=== PATIENT | male | born 1950 | race Caucasian/White ===

== ENCOUNTER 2017-01-04 16:55 | Emergency (ER) | payer MEDICARE ==
[~2017-01-04] VITALS: Ht 175.3 cm; Wt 88.5 kg
[~2017-01-04 16:55] MED LIST: ASPI-586 PO; GLUC-113 PO; HYOS0.1217 PO; LEVO75TA57 PO; LOPE2CAP PO; OMG1KC PO; SERT25TA PO; SERT50TA9 PO
--- OUTSIDE RECORDS SUMMARY | 2017-01-04 17:01 | XMS REPORT | Continuity of Care Document ---
Author Author [facility] Organization [facility] Address Unknown Phone Unavailable Allergies Active Description Code Type Severity Reaction Onset Reported/Identified Relationship to Patient Clinical Status Yes Sulfa (Sulfonamide Antibiotics) [id number] Drug Allergy Moderate N/A 11/20/2011 Medications Problems Date Dx Coded Attending Type Code Diagnosis Diagnosed By 09/27/2012 Ot 724.2 09/27/2012 Ot V57.1 08/25/2014 Ot 786.2 08/25/2014 Ot 211.3 08/25/2014 Ot 562.10 08/25/2014 Ot V12.72 08/25/2014 Ot V76.51 08/25/2014 Ot V72.84 08/25/2014 MAUDE LEW MD Ot 786.2 08/25/2014 MAUDE LEW MD Ot 786.50 09/03/2014 SHANIKA GARDINER APRN Ot 723.4 09/03/2014 SHANIKA GARDINER APRN Ot V57.1 10/01/2014 SHANIKA GARDINER PERSONNEL CLERKS SUPERVISOR Ot 723.4 10/01/2014 SHANIKA GARDINER PERSONNEL CLERKS SUPERVISOR Ot V57.1 10/16/2014 SHANIKA GARDINER PERSONNEL CLERKS SUPERVISOR Ot 721.0 10/16/2014 SHANIKA GARDINER APRN Ot 721.3 10/16/2014 SHANIKA GARDINER APRN Ot 737.30 12/17/2014 Ot 786.2 12/17/2014 Ot 211.3 12/17/2014 Ot 562.10 12/17/2014 Ot V12.72 12/17/2014 Ot V76.51 12/17/2014 Ot V72.84 12/17/2014 MAUDE LEW MD Ot 786.2 12/17/2014 MAUDE LEW MD Ot 786.50 12/17/2014 SHANIKA GARDINER APRN Ot 721.0 12/17/2014 SHANIKA GARDINER APRN Ot 721.3 12/17/2014 SHANIKA GARDINER APRN Ot 737.30 12/24/2014 Ot 786.2 12/24/2014 Ot 211.3 12/24/2014 Ot 562.10 12/24/2014 Ot V12.72 12/24/2014 Ot V76.51 12/24/2014 Ot V72.84 12/24/2014 VIPIN PACKER, MAUDE Triana Ot 786.2 12/24/2014 MAUDE LEW MD Ot 786.50 12/24/2014 SHANIKA GARDINER PERSONNEL CLERKS SUPERVISOR Ot 721.0 12/24/2014 SHANIKA GARDINER PERSONNEL CLERKS SUPERVISOR Ot 721.3 12/24/2014 SHANIKA GARDINER PERSONNEL CLERKS SUPERVISOR Ot 737.30 01/01/2015 VINAYAK PACKER, ADRIANNA Triana Ot 787.91 01/07/2015 Ot 786.2 01/07/2015 Ot 211.3 01/07/2015 Ot 562.10 01/07/2015 Ot V12.72 01/07/2015 Ot V76.51 01/07/2015 Ot V72.84 01/07/2015 MAUDE LEW MD Ot 786.2 01/07/2015 MAUDE LEW MD Ot 786.50 01/07/2015 SHANIKA GARDINER PERSONNEL CLERKS SUPERVISOR Ot 721.0 01/07/2015 SHANIKA GARDINER PERSONNEL CLERKS SUPERVISOR Ot 721.3 01/07/2015 SHANIKA GARDINER PERSONNEL CLERKS SUPERVISOR Ot 737.30 01/07/2015 VIPIN PACKER, MAUDE Triana Ot 244.9 01/07/2015 VIPIN PACKER, MAUDE Triana Ot 787.91 01/07/2015 VIPIN PACKER, MAUDE Triana Ot V58.69 01/07/2015 ADRIANNA LICEA MD Ot V72.84 01/13/2015 MAUDE LEW MD Ot 244.9 01/13/2015 MAUDE LEW MD Ot 787.91 01/13/2015 MAUDE LEW MD Ot V58.69 02/25/2015 MAUDE LEW MD Ot 477.9 08/19/2015 Ot 211.3 08/19/2015 Ot 562.10 08/19/2015 Ot V12.72 08/19/2015 Ot V76.51 08/19/2015 Ot V72.84 08/19/2015 MAUDE LEW MD Ot 786.2 08/19/2015 MAUDE LEW MD Ot 786.50 08/19/2015 SHANIKA GARDINER PERSONNEL CLERKS SUPERVISOR Ot 721.0 08/19/2015 JON GARDINERToy Danielle PERSONNEL CLERKS SUPERVISOR Ot 721.3 08/19/2015 SHANIKA GARDINER PERSONNEL CLERKS SUPERVISOR Ot 737.30 08/19/2015 VIPIN PACKER, MAUDE Triana Ot 244.9 08/19/2015 VIPIN PACKER, MAUDE Triana Ot 787.91 08/19/2015 MAUDE LEW MD Ot V58.69 08/19/2015 VINAYAK PACKER, ADRIANNA Triana Ot V72.84 08/19/2015 MAUDE LEW MD Ot 477.9 08/19/2015 KARMEN SALGUERO MD Ot R42 08/19/2015 KARMEN SALGUERO MD Ot R55 09/08/2015 JASON RICHARDSON MD Ot E03.9 HYPOTHYROIDISM, UNSPECIFIED 09/08/2015 JASON RICHARDSON MD Ot E78.5 HYPERLIPIDEMIA, UNSPECIFIED 09/08/2015 JASON RICHARDSON MD Ot I10 ESSENTIAL (PRIMARY) HYPERTENSION 09/08/2015 JASON RICHARDSON MD Ot 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 09/08/2015 JASON RICHARDSON MD Ot R00.2 PALPITATIONS 09/08/2015 JASON RICHARDSON MD Ot R42 DIZZINESS AND GIDDINESS 09/08/2015 JASON RICHARDSON MD Ot R94.39 ABNORMAL RESULT OF OTHER CARDIOVASCULAR 09/08/2015 JASON RICHARDSON MD Ot Z79.899 OTHER SNF (CURRENT) DRUG THERAPY 09/08/2015 JASON RICHARDSON MD Ot Z87.891 PERSONAL HISTORY OF NICOTINE DEPENDENCE 09/09/2015 JASON RICHARDSON MD Ot R42 09/09/2015 JASON RICHARDSON MD Ot R94.31 09/09/2015 JASON RICHARDSON MD Ot Z82.49 09/16/2015 JASON RICHARDSON MD Ot R42 09/16/2015 JASON RICHARDSON MD Ot R94.31 09/16/2015 JASON RICHARDSON MD Ot Z82.49 09/20/2015 JASON RICHARDSON MD Ot E03.9 09/20/2015 JASON RICHARDSON MD Ot E78.5 09/20/2015 JASON RICHARDSON MD Ot I10 09/20/2015 JASON RICHARDSON MD Ot I25.10 09/20/2015 JASON RICHARDSON MD Ot R00.2 09/20/2015 JASON RICHARDSON MD Ot R42 09/20/2015 JASON RICHARDSON MD Ot R94.39 09/20/2015 JASON RICHARDSON MD Ot Z79.899 09/20/2015 JASON RICHARDSON MD Ot Z87.891 Procedures Results Encounters ACCT No. Visit Date/Time Discharge Status Pt. Type Provider Facility Loc./Unit Complaint [id number] 09/08/2015 13:03:00 2015 20:00:00 DIS Outpatient JASON RICHARDSON MD [facility] [id number] 08/19/2015 09:22:00 2015 15:40:00 DIS Emergency KARMEN SALGUERO MD [facility] ER [id number] 02/08/2015 08:12:00 2014 23:59:59 CLS Outpatient MAUDE LEW MD [facility] RAD [id number] 01/01/2015 07:12:00 2014 09:56:00 [id number] 12/31/2014 06:33:00 2014 23:59:59 CLS Outpatient ADRIANNA LICEA MD [facility] PREOP [id number] 12/24/2014 10:37:00 2014 23:59:59 CLS Outpatient MAUDE LEW MD [facility] LAB [id number] 10/06/2014 08:45:00 2014 23:59:59 CLS Outpatient SHANIKA GARDINER APRN [facility] RAD [id number] 08/26/2014 14:02:00 2014 23:59:59 CLS Outpatient SHANIKA GARDINER APRN [facility] REHAB [id number] 05/19/2013 08:29:00 2012 23:59:59 CLS Outpatient MAUDE LEW MD [facility] RAD [id number] 09/06/2015 08:25:00 ACT Outpatient DEBRA PACKER, JASON Carroll [facility] CARD [id number] 09/06/2012 07:57:00 Document Registration [id number] 11/21/2011 07:56:00 Document Registration [id number] 11/20/2011 07:47:00 Document Registration [id number] 08/02/2009 16:22:00 Document Registration
[2017-01-04] MEDS ORDERED: NS IV 1000 ML 1,000 ML IV SCH (17:15)
[2017-01-04 17:16] LABS: BASOPHILS % (AUTO) 0 % (0-10); EOSINOPHILS # (AUTO) 0.1 10^3/uL (0.0-0.3); EOSINOPHILS % (AUTO) 1 % (0-10); LYMPHOCYTES % (AUTO) 12 % (12-44); MEAN CORPUSCULAR HEMOGLOBIN 32 PG (25-34); MEAN CORPUSCULAR HGB CONC 34 G/DL (32-36); MEAN CORPUSCULAR VOLUME 94 FL (80-99); MEAN PLATELET VOLUME 9.4 FL (7.4-10.4); MONOCYTES # (AUTO) 0.7 X 10^3 (0.0-1.0); MONOCYTES % (AUTO) 8 % (0-12); NEUTROPHILS # (AUTO) 6.6 X 10^3 (1.8-7.8); NEUTROPHILS % (AUTO) 79 % (42-75); PLATELET COUNT 224 10^3/uL (130-400); RED BLOOD COUNT 4.52 10^6/uL (4.35-5.85); WHITE BLOOD COUNT 8.4 10^3/uL (4.3-11.0)
--- NOTE | 2017-01-04 17:28 | ED General ---
General Chief Complaint: Dizziness/Syncope Stated Complaint: HOT FLASHES/LIGHT HEADEDNESS Source of Information: Patient Exam Limitations: No Limitations History of Present Illness Time Seen by Provider: 17:24 Initial Comments To ER from Dr. Lew's office with reports of hot flashes and lightheadedness. He also reports some tingling in both of his legs. This began today at about noon. Prior to that he been working outside in the heat but does not believe that he exerted himself. However, he states that he was sweating heavily. At this time he feels much better but still not back to normal. He denies chest pain or shortness of breath. Denies nausea currently though he did have nausea earlier without vomiting. No diarrhea. Timing/Duration: 2-3 Days Severity: Moderate Associated Systoms: Nausea/Vomiting, Weakness Allergies and Home Medications Allergies Coded Allergies: Sulfa (Sulfonamide Antibiotics) (Unverified Allergy, Intermediate, 11/20/11 ) Home Medications Aspirin 81 Mg Tablet.dr, 81 MG PO DAILY, (Reported) Levothyroxine Sodium 75 Mcg Tablet, 75 MCG PO DAILY, (Reported) [place] 3 Polyunsat Fatty Acids 1,000 Mg Cap, 1,000 MG PO TID, (Reported) Sertraline HCl 50 Mg Tablet, 50 MG PO DAILY, (Reported) Constitutional: see HPI EENTM: see HPI Respiratory: no symptoms reported Cardiovascular: no symptoms reported Genitourinary: no symptoms reported Musculoskeletal: no symptoms reported Skin: no symptoms reported Psychiatric/Neurological: No Symptoms Reported Hematologic/Lymphatic: No Symptoms Reported Past Atbjplp-Rqoyec-Iymvrg Hx Patient Social History Alcohol Use: Regular Use Recreational Drug Use: No Smoking Status: Never a Smoker Recent Foreign Travel: No Contact w/Someone Who Travel: No Immunizations Up To Date Date of Pneumonia Vaccine: Dec 31, 2009 Surgeries HX Surgeries: Yes Respiratory Hx Respiratory Disorders: No Cardiovascular Hx Cardiac Disorders: No Neurological Hx Neurological Disorders: No Genitourinary Hx Genitourinary Disorders: No Gastrointestinal Hx Gastrointestinal Disorders: No Musculoskeletal Hx Musculoskeletal Disorders: Yes (ARTHRITIS) Endocrine Hx Endocrine Disorders: Yes Cancer Cancer: Prostate Physical Exam Vital Signs Vital Sign - Last 12Hours 01/04/17 16:58 Temp 98.9 Pulse 78 Resp 18 B/P (MAP) 151/87 Pulse Ox 98 O2 Delivery Room Air Capillary Refill : General Appearance: No Apparent Distress, WD/WN Eyes: Bilateral Eye EOMI, Bilateral Eye Normal Inspection, Bilateral Eye PERRL HEENT: PERRL/EOMI, TMs Normal Neck: Full Range of Motion, Normal Inspection Respiratory: Normal Breath Sounds, No Accessory Muscle Use, No Respiratory Distress Cardiovascular: Regular Rate, Rhythm, Normal Peripheral Pulses Gastrointestinal: Normal Bowel Sounds, Non Tender, Soft Extremity: Normal Capillary Refill, Normal Inspection Neurologic/Psychiatric: Alert, Oriented x3, No Motor/Sensory Deficits, Normal Mood/Affect Skin: Normal Color, Warm/Dry Comments Initial heart rate 63, blood pressure 162/87 Progress/Results/Core Measures Results/Orders Lab Results Laboratory Tests Test 01/04/17 17:04 Range/Units White Blood Count 8.4 4.3-11.0 10^3/uL Red Blood Count 4.52 4.35-5.85 10^6/uL Hemoglobin 14.5 13.3-17.7 G/DL Hematocrit 43 40-54 % Mean Corpuscular Volume 94 80-99 FL Mean Corpuscular Hemoglobin 32 25-34 PG Mean Corpuscular Hemoglobin Concent 34 32-36 G/DL Red Cell Distribution Width 13.0 10.0-14.5 % Platelet Count 224 130-400 10^3/uL Mean Platelet Volume 9.4 7.4-10.4 FL Neutrophils (%) (Auto) 79 H 42-75 % Lymphocytes (%) (Auto) 12 12-44 % Monocytes (%) (Auto) 8 0-12 % Eosinophils (%) (Auto) 1 0-10 % Basophils (%) (Auto) 0 0-10 % Neutrophils # (Auto) 6.6 1.8-7.8 X 10^3 Lymphocytes # (Auto) 1.0 1.0-4.0 X 10^3 Monocytes # (Auto) 0.7 0.0-1.0 X 10^3 Eosinophils # (Auto) 0.1 0.0-0.3 10^3/uL Basophils # (Auto) 0.0 0.0-0.1 10^3/uL Sodium Level 136 135-145 MMOL/L Potassium Level 4.2 3.6-5.0 MMOL/L Chloride Level 101 98-107 MMOL/L Carbon Dioxide Level 23 21-32 MMOL/L Anion Gap 12 5-14 MMOL/L Blood Urea Nitrogen 13 7-18 MG/DL Creatinine 0.89 0.60-1.30 MG/DL Estimat Glomerular Filtration Rate > 60 BUN/Creatinine Ratio 15 Glucose Level 102 70-105 MG/DL Calcium Level 9.3 8.5-10.1 MG/DL Total Bilirubin 0.9 0.1-1.0 MG/DL Aspartate Amino Transf (AST/SGOT) 25 5-34 U/L Alanine Aminotransferase (ALT/SGPT) 24 0-55 U/L Alkaline Phosphatase 45 40-136 U/L Myoglobin 51.5 10.0-92.0 NG/ML Troponin I < 0.30 <0.30 NG/ML Total Protein 7.4 6.4-8.2 GM/DL Albumin 4.6 H 3.2-4.5 GM/DL My Orders Orders - AJAY CARBONE APRN Cbc With Automated Diff (01/04/17 17:05) Ekg Tracing (01/04/17 17:05) Comprehensive Metabolic Panel (01/04/17 17:05) Troponin I (01/04/17 17:05) Myoglobin Serum (01/04/17 17:05) Ns Iv 1000 Ml (Sodium Chloride 0.9%) (01/04/17 17:15) Vital Signs/I&O Vital Sign - Last 12Hours 01/04/17 16:58 Temp 98.9 Pulse 78 Resp 18 B/P (MAP) 151/87 Pulse Ox 98 O2 Delivery Room Air Progress Note : Progress Note 1831-symptoms have completely resolved at this time with no tingling in the legs and no lightheadedness. Still no nausea. Vital stable we will discharge to home Departure Impression Impression: Primary Impression: heat related illness Disposition: 01 HOME, SELF-CARE Condition: Stable Departure-Patient Inst. Decision time for Depature: 17:41 Referrals: MAUDE LEW MD (PCP/Family) Primary Care Physician Patient Instructions: Heat Exhaustion and Heat Stroke (DC) Add. Discharge Instructions: All discharge instructions reviewed with patient and/or family. Voiced understanding. AJAY CARBONE APRN Jan 04, 2017 17:28
[2017-01-04 17:29] LABS: ALANINE AMINOTRANSFERASE 24 U/L (0-55); ALBUMIN 4.6 GM/DL (3.2-4.5); ANION GAP 12 MMOL/L (5-14); ASPARTATE AMINO TRANSFERASE 25 U/L (5-34); BILIRUBIN,TOTAL 0.9 MG/DL (0.1-1.0); BLOOD UREA NITROGEN 13 MG/DL (7-18); BUN/CREATININE RATIO 15; CALCIUM 9.3 MG/DL (8.5-10.1); CARBON DIOXIDE 23 MMOL/L (21-32); CHLORIDE 101 MMOL/L (98-107); CREATININE SERUM 0.89 MG/DL (0.60-1.30); GFR ESTIMATED > 60; GLUCOSE 102 MG/DL (70-105); POTASSIUM 4.2 MMOL/L (3.6-5.0); SODIUM 136 MMOL/L (135-145); TOTAL PROTEIN 7.4 GM/DL (6.4-8.2)
[2017-01-04 17:35] LABS: MYOGLOBIN SERUM 51.5 NG/ML (10.0-92.0); TROPONIN I < 0.30 NG/ML (<0.30)
[2017-01-04 18:20] VITALS: BP 151/87
== END 2017-01-04 18:20 | disposition home or self-care (01) ==
LOC: EDUNIT# 16:55 → ER 16:57
DX: T67.8XXA Other effects of heat and light, initial encounter (principal); R42 Dizziness and giddiness
CPT/HCPCS: 36415; 80053; 83874; 84484; 85025; 96360

== ENCOUNTER → 2017-01-17 | Outpatient (CLI) | payer MEDICARE ==
--- NOTE | 2017-01-17 15:33 | Diagnostic Imaging Report ---
PA and lateral views of the chest. INDICATION: Shortness of breath. FINDINGS: The lungs are hyperinflated but clear. The heart size is normal. There is no effusion or pneumothorax. The mediastinum and long appear unremarkable. IMPRESSION: Hyperinflated clear lungs. Dictated by: Dictated on workstation # [id number]
--- NOTE | 2017-01-17 15:41 | Diagnostic Imaging Report ---
Three views of the lumbar spine. INDICATION: Back pain. FINDINGS: There is satisfactory alignment of the posterior spinal line. There is preserved vertebral body heights. The disc heights demonstrate significant disc height loss at L4/5 and L5/S1 levels. Minimal anterior osteophytes without significant posterior osteophytes is seen in the mid to lower lumbar spine. Degenerative sclerosis of the lower facet joints and the SI joints is seen. IMPRESSION: Lower lumbar spine disc and facet degenerative changes. Dictated by: Dictated on workstation # [id number]
--- NOTE | 2017-01-17 15:41 | Diagnostic Imaging Report ---
Three views of the thoracic spine. INDICATION: Back pain. FINDINGS: The alignment of the thoracic spine is satisfactory. The vertebral body heights are preserved. There is multilevel disc height loss seen with the endplate sclerosis and prominent anterior osteophytes most prominent around the mid to lower thoracic spine. The lower thoracic spine demonstrate a slight left convex scoliosis. IMPRESSION: Mid to lower thoracic spine degenerative changes and slight left convexity scoliosis. Dictated by: Dictated on workstation # [id number]
--- NOTE | 2017-01-17 15:41 | Diagnostic Imaging Report ---
Two views of the right ribs. INDICATION: Right rib pain. FINDINGS: There is no rib fracture seen. The right lung is clear. IMPRESSION: No rib fracture seen. Dictated by: Dictated on workstation # [id number]
== END ==
LOC: RAD 15:02
PROVIDERS: ATTEND Nurse Practitioner
DX: R07.81 Pleurodynia (principal); M47.814 Spondylosis without myelopathy or radiculopathy, thoracic region; M51.36 Other intervertebral disc degeneration, lumbar region; M47.816 Spondylosis without myelopathy or radiculopathy, lumbar region
CPT/HCPCS: 71020; 71100; 72072; 72100

== ENCOUNTER 2017-04-03 13:42 | Outpatient (RCR) | payer MEDICARE | END 2017-04-07 | disposition home or self-care (01) | PROVIDERS: ATTEND Physician Assistant | DX: M54.5 Low back pain (principal); M54.6 Pain in thoracic spine ==

== ENCOUNTER 2017-06-18 09:15 | Outpatient (RCR) | payer MEDICARE | END 2017-07-08 | disposition home or self-care (01) | PROVIDERS: ATTEND Physician Assistant | DX: M54.5 Low back pain (principal); M54.6 Pain in thoracic spine ==

== ENCOUNTER 2017-08-20 13:00 | Outpatient (RCR) | payer MEDICARE | END 2017-10-02 09:08 | disposition home or self-care (01) | PROVIDERS: ATTEND Internal Medicine | DX: M54.5 Low back pain (principal) ==

== ENCOUNTER → 2017-12-20 | Outpatient (CLI) | payer MEDICARE ==
--- NOTE | 2017-12-20 16:21 | Diagnostic Imaging Report ---
INDICATION: Shortness of breath and cough. TIME OF EXAM: 02:29 p.m. Correlation is made with prior study from 01/17/2017. FINDINGS: The heart size is stable. Lungs are hyperinflated consistent with COPD. No infiltrates are detected. No effusion or pneumothorax is seen. IMPRESSION: COPD. No acute feature is detected. Dictated by: Dictated on workstation # [id number]
== END ==
LOC: RAD 13:48
PROVIDERS: ATTEND Nurse Practitioner
DX: J44.9 Chronic obstructive pulmonary disease, unspecified (principal); R50.9 Fever, unspecified
CPT/HCPCS: 71046

== ENCOUNTER 2018-05-27 09:15 | Outpatient (RCR) | payer MEDICARE | END 2018-07-04 13:28 | disposition home or self-care (01) | PROVIDERS: ATTEND Physician Assistant | DX: M54.5 Low back pain (principal) ==

== ENCOUNTER → 2018-06-06 | Outpatient (CLI) | payer MEDICARE ==
--- NOTE | 2018-06-06 08:56 | Diagnostic Imaging Report ---
PROCEDURE: US abdomen complete. TECHNIQUE: Multiple real-time grayscale images were obtained over the abdomen in various projections. INDICATION: Right upper quadrant pain. FINDINGS: The liver is normal in size. No discrete liver mass is identified. There is some increased echogenicity to the liver suggestive of hepatic steatosis. The portal vein is patent and shows normal direction of flow. The gallbladder is without stones or sludge. No wall thickening or biliary duct dilatation is identified. The pancreas and spleen are unremarkable. The aorta is nonaneurysmal. The IVC appears patent. Right and left kidneys are unremarkable apart from a small approximately 1 cm cyst involving the mid right kidney. There is no ascites. IMPRESSION: Essentially unremarkable abdominal ultrasound apart from hepatic steatosis and small right renal cyst. Dictated by: Dictated on workstation # [id number]
== END ==
LOC: RAD 07:58
PROVIDERS: ATTEND Nurse Practitioner
DX: K76.0 Fatty (change of) liver, not elsewhere classified (principal); N28.1 Cyst of kidney, acquired
CPT/HCPCS: 76700

== ENCOUNTER → 2018-06-06 | Outpatient (CLI) | payer MEDICARE | LOC: CARD 10:45 | PROVIDERS: ATTEND Physician Assistant | DX: I10 Essential (primary) hypertension (principal); I25.10 Atherosclerotic heart disease of native coronary artery without angina pectoris; E78.2 Mixed hyperlipidemia; Z82.49 Family history of ischemic heart disease and other diseases of the circulatory system; I34.0 Nonrheumatic mitral (valve) insufficiency | CPT/HCPCS: 93306 ==

== ENCOUNTER → 2018-07-05 | Outpatient (CLI) | payer MEDICARE ==
[~2018-07-05] MED LIST changes: +CATHETER FLUSH 10 ML SYR IV PRN; +LEVO50TA6 PO; +LISI-552 PO; +OMEG1CAP24 PO; +RANI150T46 PO; +SUCR1TAB36 PO; +[UNRECOGNIZED DRUG - CODE] PO
--- NOTE | 2018-07-05 12:12 | Diagnostic Imaging Report ---
INDICATION: Right upper quadrant pain. Patient was administered 5.5 mCi technetium 99m Choletec intravenously and imaging over the abdomen was performed. Next, patient ingested 8 ounces of Ensure at 45 minutes and a gallbladder ejection fraction was calculated. There is homogeneous uptake of activity by the liver. Prompt excretion of activity into the gallbladder and common duct is seen with normal passage of activity into the small bowel. Gallbladder ejection fraction is normal at 57%. IMPRESSION: Normal HIDA scan and gallbladder ejection fraction. Dictated by: Dictated on workstation # [id number]
== END ==
LOC: CARD 09:14
PROVIDERS: ATTEND Surgery
DX: R10.11 Right upper quadrant pain (principal)
CPT/HCPCS: 78227

== ENCOUNTER 2018-07-08 05:45 | Outpatient (CLI) | payer MEDICARE ==
[~2018-07-08] VITALS: Ht 175.3 cm; Wt 61.2 kg
[~2018-07-08 05:45] MED LIST changes: -CATHETER FLUSH 10 ML SYR IV PRN; -LEVO50TA6 PO; -LISI-552 PO; -OMEG1CAP24 PO; -RANI150T46 PO; -SUCR1TAB36 PO; -[UNRECOGNIZED DRUG - CODE] PO
[2018-07-08] MEDS ORDERED: [UNRECOGNIZED DRUG - CODE] PO (10:06)
[2018-07-08] MEDS ORDERED: LEVO50TA6 PO (10:06)
[2018-07-08] MEDS ORDERED: OMEG1CAP24 PO (10:06)
[2018-07-08] MEDS ORDERED: LISI-552 PO (10:06)
[2018-07-08] MEDS ORDERED: RANI150T46 PO (10:06)
[2018-07-08] MEDS ORDERED: SUCR1TAB36 PO (10:06)
== END 2018-07-08 10:27 | disposition home or self-care (01) ==
LOC: PREOP 05:45
PROVIDERS: ATTEND Surgery
DX: Z01.818 Encounter for other preprocedural examination (principal)

== ENCOUNTER 2018-07-11 09:38 | Day surgery (SDC) | payer MEDICARE ==
[~2018-07-11] VITALS: Ht 175.3 cm; Wt 59.9 kg
[~2018-07-11 09:38] MED LIST changes: +LEVO50TA6 PO; +LISI-552 PO; +OMEG1CAP24 PO; +RANI150T46 PO; +SUCR1TAB36 PO; +[UNRECOGNIZED DRUG - CODE] PO
--- NOTE | 2018-07-11 10:04 | Progress Note-Pre Operative ---
Pre-Operative Progress Note H&P Reviewed The H&P was reviewed, patient examined and no changes noted. Date Seen by Provider: Jul 11, 2018 Time Seen by Provider: 10:00 Date H&P Reviewed: Jul 11, 2018 Time H&P Reviewed: 10:00 Pre-Operative Diagnosis: symptomatic biliary dyskinesia, GERD, hx polyp DUNG ACHARYA MD Jul 11, 2018 10:04
[2018-07-11 10:05] VITALS: BP 159/83
[2018-07-11] MEDS: LACTATED RINGERS 1,000 ML IV PRN ×2 (10:05→12:40)
[2018-07-11 10:13] LABS: BASOPHILS % (AUTO) 1 % (0-10); EOSINOPHILS # (AUTO) 0.1 10^3/uL (0.0-0.3); EOSINOPHILS % (AUTO) 2 % (0-10); HEMATOCRIT 47 % (40-54); HEMOGLOBIN 15.5 G/DL (13.3-17.7); LYMPHOCYTES # (AUTO) 1.2 X 10^3 (1.0-4.0); LYMPHOCYTES % (AUTO) 25 % (12-44); MEAN CORPUSCULAR HEMOGLOBIN 31 PG (25-34); MEAN CORPUSCULAR HGB CONC 33 G/DL (32-36); MEAN CORPUSCULAR VOLUME 94 FL (80-99); MONOCYTES # (AUTO) 0.6 X 10^3 (0.0-1.0); MONOCYTES % (AUTO) 12 % (0-12); NEUTROPHILS # (AUTO) 2.9 X 10^3 (1.8-7.8); NEUTROPHILS % (AUTO) 60 % (42-75); PLATELET COUNT 236 10^3/uL (130-400); RED BLOOD COUNT 4.96 10^6/uL (4.35-5.85); RED CELL DISTRIBUTION WIDTH 12.6 % (10.0-14.5); WHITE BLOOD COUNT 4.8 10^3/uL (4.3-11.0)
[2018-07-11] MEDS ORDERED: morphine INJ 10 MG/ML 1ML (SYR OR VIAL) IVP PRN (10:15)
[2018-07-11] MEDS ORDERED: ACETAMINOPHEN 325 MG TABLET PO PRN (10:15)
[2018-07-11] MEDS ORDERED: oxyCODONE/APAP 5/325MG (PERCOCET 5) TABLET PO PRN (10:15)
[2018-07-11] MEDS ORDERED: ceFAZolin 2 GM IV Premixed 50 ML IV ONE (10:15)
[2018-07-11] MEDS ORDERED: ONDANSETRON 4 MG/2 ML (SDV) Z0FRAN IVP PRN ×2 (10:15→14:15)
[2018-07-11] MEDS ORDERED: fentaNYL INJECTION 100 MCG/2 ML AMP ONE (11:54)
[2018-07-11] MEDS ORDERED: MIDAZOLAM 2 MG/2 ML (VERSED) VIAL ONE (11:54)
[2018-07-11] MEDS ORDERED: proPOfol 200 MG/20 ML (DIPRIVAN) VIAL IV ONE (11:54)
[2018-07-11] MEDS ORDERED: LIDOCAINE PF 2% 5 ML (XYLOCAINE) VIAL ONE (11:54)
[2018-07-11] MEDS ORDERED: BUP/EPI 0.5% 1:200,000 (SENSORCAINE) 30 ML VIAL ONE (12:01)
[2018-07-11] MEDS ORDERED: PANT40TA2 PO (13:45)
[2018-07-11] MEDS ORDERED: HYDR-3816 PO (13:45)
--- NOTE | 2018-07-11 13:47 | Discharge Inst-Surgical ---
D/C Lap Instructions-KIDO New, Converted, or Re-Newed RX: RX on Chart Follow up appointment 2 weeks Activity as tolerated No driving for 24 hours No [address] while on pain medications Incentive Spirometry use every 2 hours while awake Regular Diet High Fiber Diet 25g or more per day Avoid Alcohol, Caffeine, Spicy [place] and Acid foods. Drink 64 fluid oz or more of fluids per day. Symptoms to Report: Fever over 101 degree F, Nausea/Vomiting Infection Signs and Symptoms to report: Increased redness, Foul odor of wound, Increased drainage Bathing instructions: May shower Operative Area Clean/Dry; Keep incision clean/dry If any problems/questions: Contact your physician or go to Emergency Room CORA GARCIA APRN Jul 11, 2018 13:47
[2018-07-11] MEDS ORDERED: morphine INJ 10 MG/ML 1ML (SYR OR VIAL) IVP ONE (14:15)
[2018-07-11] MEDS ORDERED: HYDROmorphone 2 MG/ML VIAL (DILAUDID) IV ONE (14:15)
--- NOTE | 2018-07-11 14:28 | Progress Note-Post Operative ---
Post-Operative Progess Note Surgeon (s)/Landing Worker (s) Surgeon DUNG ACHARYA MD Landing Worker: jovanni mccloud SENIOR NET WEB DEVELOPER Pre-Operative Diagnosis symptomatic biliary dyskinesia, GERD, hx polyp Post-Operative Diagnosis symptomatic biliary dyskinesia, reflux esophagitis(stage 2), small HH(1.5cm), moderate gastritis, chronic stage 1 ext and int hemorrhoids. Procedure & Operative Findings Date of Procedure 07/11/18 Procedure Performed/Findings laparoscopic cholecystectomy. EGD with bx. Colonoscopy. Anesthesia Type GET Estimated Blood Loss Estimated blood loss (mL): minimal Specimens/Packing Specimens Removed gallbladder, GE jxn, antrum DUNG ACHARYA MD Jul 11, 2018 14:28
--- NOTE | 2018-07-11 14:44 | Anesthesia-General Post-Op ---
General Patient Condition Mental Status/LOC: Same as Preop Cardiovascular: Satisfactory Nausea/Vomiting: Absent Respiratory: Satisfactory Pain: Controlled Complications: Absent Post Op Complications Complications None Follow Up Care/Instructions Patient Instructions None needed. Anesthesia/Patient Condition Patient Condition Patient is doing well, no complaints, stable vital signs, no apparent adverse anesthesia problems. ROSA DUVALL DO Jul 11, 2018 14:44
[2018-07-11 14:55] VITALS: BP 130/73
[2018-07-11 15:25] VITALS: BP 143/81
[2018-07-11 15:55] VITALS: BP 141/84
[2018-07-11 16:25] VITALS: BP 141/84
--- NOTE | 2018-07-12 00:39 | OPERATIVE REPORT ---
DATE OF SERVICE: 07/11/2018 ATTENDING PRIMARY CARE PHYSICIAN: Dr. Alarcon. PREOPERATIVE DIAGNOSES: Symptomatic biliary dyskinesia, gastroesophageal reflux disease, history of colon polyp. POSTOPERATIVE DIAGNOSES: Symptomatic biliary dyskinesia, reflux esophagitis stage II, small hiatal hernia approximately 1.5 cm in size, moderate severity gastritis. Chronic stage I external and internal hemorrhoids. Remainder of the rectum and colon were normal. PROCEDURE: Laparoscopic cholecystectomy, EGD with biopsy, colonoscopy. SURGEON: Dung Fisher MD FOOD SAFETY AUDITOR: Nav Diaz APRN. ANESTHESIA: General endotracheal. ESTIMATED BLOOD LOSS: Minimal. FINDINGS: A distended gallbladder with no gallstones. Reflux esophagitis stage II. A small hiatal hernia approximately 1.5 cm in size. Moderate severity gastritis. No formal ulcerations, polyps or any neoplasms. Pylorus and duodenum appeared normal with no distal obstructions. Colonoscopy, chronic stage I external and internal hemorrhoids, not actively edematous nor inflamed and no bleeding. Prostate gland was palpable and appeared normal. The remainder of the rectum and colon were normal. There were no polyps or any neoplasms identified. DISPOSITION: The patient tolerated the procedure well. INDICATIONS: The patient is a 68-year-old male who has had a multitude of gastrointestinal issues. He first reports that he has had issues with reflux with epigastric burning sensation as well as crampy pain for several years; however, this has been mild. He has been taking Zantac, which initially helped; however, has become less effective over time. He also has had some abdominal bloating as well as episodes of nausea after eating meals and an ultrasound was performed, which did not show any gallstones; however, HIDA scan was then performed and after the administration of a Kinevac analog, he did have an ejection fraction within normal limits; however, he did have reproduction of symptoms with abdominal distention, bloating, crampy abdominal pain. He has also had a history of colonic polyp on his last colonoscopy, which was done approximately 5 years ago. He does not report any red blood per rectum nor any dark tarry stools. He also does not report any family history of colon cancer. DESCRIPTION OF PROCEDURE: The patient was brought to the operating room, laid supine on the table. After adequate IV pain and sedative medications and general endotracheal intubation, the abdomen was prepped and draped in standard surgical fashion. A 0.5% Marcaine with epinephrine was used to anesthetize the overlying skin in the left upper abdominal quadrant and a transverse skin incision was made using a 15 blade. An 0 silk suture was applied to the medial aspect of the incision for retraction and a Veress needle inserted with a low opening pressure of 0 mmHg. The abdomen was then insufflated to 15 mmHg pressure. The Veress needle was removed and a 5 mm Xcel trocar was placed followed by a 5 mm 45-degree angle laparoscope visualizing the peritoneal cavity. A 4-quadrant abdominal exploration was performed. There was gallbladder dilatation. There was no gallbladder wall inflammation. What was visualized was the liver, stomach, small bowel appeared normal. Under direct visualization, we then proceed to place a supraumbilical 10 mm port after the skin and peritoneal lining were anesthetized using 0.5% Marcaine with epinephrine and a transverse skin incision was made using a 15 blade. In a similar manner, a right upper abdominal quadrant 5 mm port was placed. The patient was then placed in reverse Trendelenburg position as well as plane right side up, left side down. The fundus of the gallbladder was then retracted anteriorly and superiorly. The hepatoduodenal ligament was then opened using blunt dissection as well as electrocautery on the hook instrument. The entire critical view of safety was identified including the triangle of Calot as well as the cystic duct and artery as the only two structures going into the gallbladder as well as the cystic plate behind the proximal gallbladder. A timeout was then taken. The cystic duct and artery were then clipped proximally, distally and cut with EndoShears. The gallbladder was then dissected off of the liver bed using cautery on hook instrument with visualization of good hemostasis as well as no leaking ducts of Luschka. The gallbladder was then removed through the 10 mm port site using an EndoCatch bag. The 10 mm port site fascia and peritoneum were then closed under direct visualization using a Richmond-Jessika device and 0 Vicryl suture. The abdomen was desufflated and remaining ports were removed. All skin incisions were closed using 4-0 Monocryl running subcuticular sutures. Wounds were then cleaned and covered with Dermabond. The patient tolerated this portion of the procedure well. We will start IV and oral pain medication as well as a clear liquid diet. Once he is tolerating clears, has good pain control with oral pain medications, ambulating well, we will discharge him home. He will also be instructed to do no heavy lifting or exertion for the next two weeks. Under the same anesthesia, we then proceeded with the EGD portion of procedure. The mouthpiece was applied. The endoscope was placed in the mouth, visualizing the pharynx and hypopharyngeal region. Vocal cords, epiglottis and vallecula identified and appeared to be normal. Endoscope was then gently intubated. The esophageal opening and esophagus insufflated. The endoscope was then advanced to the first, second and third portions of the esophagus at the level of the GE junction. A reflux esophagitis stage II identified. There were no ulcers or strictures identified in this region. The endoscope was then easily advanced in the stomach and endoscope retroflexed, visualizing a small hiatal hernia approximately 1.5 cm in size. There was a moderate severity gastritis more focused towards the stomach antrum with superficial erosions; however, no formal ulcerations. A biopsy was taken of the antrum with forceps with visualization of good hemostasis. The endoscope was then advanced through the pylorus and the first and second portions of duodenum, which appeared normal and no distal obstructions. The endoscope was then slowly withdrawn while taking a second look and suctioning of residual air with no additional findings. The patient tolerated this portion of the procedure well. We will recommend the necessary lifestyle and diet accommodation including smoking cessation as well as avoidance of caffeinated beverages, alcoholic beverages as well as spicy, greasy and acidic foods as well as starting Protonix 40 mg daily. Under the same anesthesia, we then proceed with colonoscopy portion of the procedure. The patient was placed in frog leg position and a digital rectal examination was performed, which revealed mild chronic stage I external and internal hemorrhoids, not actively edematous nor inflamed and no bleeding. Normal sphincter tone was felt and there were no palpable masses. Prostate gland was palpable and appeared to be normal. The endoscope was then intubated to the anus and rectum gently insufflated. The endoscope was then advanced through the valves of Leonard of the rectum with no polyps or any neoplasms identified. We then proceeded to the sigmoid colon where no diverticulosis identified. The endoscope was then advanced through the remainder of the descending, transverse and ascending colon to the cecum. These segments are normal. There were no polyps or any neoplasms identified throughout the colon or rectum. The endoscope was then slowly withdrawn while taking a second look and suctioning of residual air with no additional findings. The patient tolerated this portion of the procedure well. No polyps were identified and we will recommend continued medical management with high fiber diet with at least 30 grams of fiber per day as well as copious amounts of water to promote soft stools on a daily basis. He does not need another colonoscopy for another 10 years; however, sooner if he becomes symptomatic. Job ID: [id number] DocumentID: [id number] Dictated Date: 07/11/2018 14:32:26 Clinical Research Physician Date: 07/12/2018 00:38:59 Dictated By: DUNG FISHER MD MTDD
== END 2018-07-11 16:25 | disposition home or self-care (01) ==
LOC: SDC 09:38
PROVIDERS: ATTEND Surgery
DX: K81.1 Chronic cholecystitis (principal); K22.70 Barrett's esophagus without dysplasia; K21.0 Gastro-esophageal reflux disease with esophagitis; K44.9 Diaphragmatic hernia without obstruction or gangrene; K29.70 Gastritis, unspecified, without bleeding; K64.0 First degree hemorrhoids; Z86.010 Personal history of colon polyps; I10 Essential (primary) hypertension; J44.9 Chronic obstructive pulmonary disease, unspecified; F17.220 Nicotine dependence, chewing tobacco, uncomplicated; C61 Malignant neoplasm of prostate; E03.9 Hypothyroidism, unspecified; K21.9 Gastro-esophageal reflux disease without esophagitis; F41.9 Anxiety disorder, unspecified; F32.9 Major depressive disorder, single episode, unspecified; E78.00 Pure hypercholesterolemia, unspecified; Z79.82 Long term (current) use of aspirin; Z79.899 Other long term (current) drug therapy
CPT/HCPCS: 36415; 85025; 87081; 88304; 88305; 94664

== ENCOUNTER 2018-10-10 09:23 | Outpatient (RCR) | payer MEDICARE ==
[~2018-10-10 09:23] MED LIST changes: +HYDR-3816 PO; +PANT40TA2 PO
== END 2018-12-04 15:50 | disposition home or self-care (01) ==
PROVIDERS: ATTEND Internal Medicine
DX: M54.12 Radiculopathy, cervical region (principal)

== ENCOUNTER → 2018-11-20 | Outpatient (CLI) | payer MEDICARE ==
--- NOTE | 2018-11-20 13:39 | Diagnostic Imaging Report ---
CLINICAL INDICATION: Patient with history of right renal cyst seen on previous ultrasound dated 06/06/2018. EXAM: Ultrasound of both kidneys. COMPARISON: Ultrasound of the abdomen dated 06/06/2018. FINDINGS: The previously seen 10 mm cyst involving the lateral aspect of the right kidney is not visualized on today's exam. There is a roughly 10 mm exophytic hypoechoic area involving the midportion of the right kidney seen on image 17 and 18. There is no associated Doppler flow. This hypoechoic area appears to have some echoes within it. This area was not seen on the prior study. Otherwise, both kidneys are normal in size, shape, echogenicity and cortical thickness without hydronephrosis, stones, or other focal lesions with the right and left kidneys measuring 10.9 cm and 9.9 cm in their craniocaudal dimensions, respectively. Bladder is partially fluid-filled. No gross abnormality is visualized. Right ureteral jet is not seen. Left ureteral jet is seen. IMPRESSION: 1: There is a 10 mm exophytic area involving the midportion of the right kidney which was not seen on the prior study and demonstrates no central Doppler flow. A complicated cyst may be considered. Followup ultrasound evaluation in six months would help better evaluate for interval change. 2: The previously seen 10 mm cyst involving the right kidney is not visualized on this exam. 3: There is no acute abnormality involving the kidneys. There is no hydronephrosis. Dictated by: Dictated on workstation # [id number]
== END ==
LOC: RAD 09:45
PROVIDERS: ATTEND Internal Medicine
DX: N28.1 Cyst of kidney, acquired (principal)
CPT/HCPCS: 76770

== ENCOUNTER 2019-02-12 16:39 | Emergency (ER) | payer MEDICARE ==
[~2019-02-12] VITALS: Ht 177.8 cm; Wt 61.2 kg
[~2019-02-12 16:39] MED LIST changes: +RANI-613 PO; -RANI150T46 PO
--- OUTSIDE RECORDS SUMMARY | 2019-02-12 16:43 | XMS REPORT | Clinical Summary ---
Author Author [facility] Organization [facility] Address Unknown Phone Unavailable Care Team Providers Care Grading Machine Operator Name Role Phone PCP Unavailable Allergies Not on File Medications Not on file Active Problems Not on file Social History Date Tobacco Use Types Packs/Day Years Used Never Assessed Sex Assigned at Date Recorded Not on file Industry Job Start Date Occupation Not on file Not on file Not on file Travel End Travel History Travel Start No recent travel history available. Last Filed Vital Signs Not on file Plan of Treatment Not on file Results Not on filefrom Last 3 Months
--- OUTSIDE RECORDS SUMMARY | 2019-02-12 16:43 | XMS REPORT | Encounter Summary ---
Author Author [facility] Organization [facility] Address Unknown Phone Unavailable Care Team Providers Care Pharmacist Manager Name Role Phone PCP Unavailable Encounter Details Care Team Description Date Type Department Armani Anderson MD [address] [facility] [address] [place] [address] [phone] 12/18/2006 [facility] Encounter [address] [place], [place] [id number] Social History Date Tobacco Use Types Packs/Day Years Used Never Assessed Sex Assigned at Date Recorded Not on file Industry Job Start Date Occupation Not on file Not on file Not on file Travel End Travel History Travel Start No recent travel history available. documented as of this encounter Plan of Treatment Not on filedocumented as of this encounter Procedures Comments Procedure Name Priority Date/Time Associated Diagnosis COMPLETE BLOOD COUNT Routine 12/18/2006 11:35 AM CDT BASIC METABOLIC PANEL Routine 12/18/2006 11:35 AM CDT documented in this encounter Results * Complete Blood Count (12/18/2006 11:35 AM CDT) WBC 8.0 4.0 - 11.0 TH[facility]UL [facility] RBC 5.28 4.31 - 5.84 MIL/UL [facility] Hemoglobin 16.6 13.0 - 17.0 G/DL [facility] Hematocrit 48 40 - 50 % [facility] MCV 92 80 - 99 FL [facility] MCH 31 27 - 34 PG [facility] MCHC 34 32 - 36 % [facility] RDW 13.2 <14.5 % [facility] Platelet Count 275 140 - 400 TH[facility]UL [facility] Specimen Performing Organization Address City/State/Zipcode Phone Number [facility] [address] [place] [address] [facility] * Basic Metabolic Panel (12/18/2006 11:35 AM CDT) Sodium 139 134 - 144 MEQ/L [facility] Potassium 4.4 3.5 - 5.1 MEQ/L [facility] Chloride 99 (L) 101 - 111 MEQ/L [facility] Carbon Dioxide 30 23 - 32 MEQ/L [facility] Anion Gap 10 3 - 15 [facility] Creatinine 1.0 0.9 - 1.3 MG/DL [facility] Blood Urea 18 8 - 26 MG/DL [facility] Nitrogen Glucose 93 65 - 100 MG/DL [facility] Calcium 9.5 8.8 - 10.5 MG/DL [facility] Specimen Performing Organization Address City/State/Zipcode Phone Number [facility] [address] [place] [address] [facility] documented in this encounter Visit Diagnoses Not on filedocumented in this encounter
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
--- OUTSIDE RECORDS SUMMARY | 2019-02-12 16:45 | XMS REPORT | Continuity of Care Document ---
Author Organization Unknown Address Unknown Phone Unavailable Allergies Active Description Code Type Severity Reaction Onset Reported/Identified Relationship to Patient Clinical Status Yes Sulfa (Sulfonamide Antibiotics) [id number] Drug Allergy Moderate N/A 11/20/2011 Medications There is no data. Problems Date Dx Coded Attending Type Code Diagnosis Diagnosed By MAUDE LEW MD Ot M54.5 LOW BACK PAIN 06/07/1327 MAGGY MEYER Ot M54.5 LOW BACK PAIN 06/07/1549 MAUDE LEW MD Ot M54.12 RADICULOPATHY, CERVICAL REGION 09/27/2012 Ot 724.2 LUMBAGO 09/27/2012 Ot V57.1 PHYSICAL THERAPY NEC 08/25/2014 Ot 786.2 08/25/2014 Ot 211.3 08/25/2014 Ot 562.10 08/25/2014 Ot V12.72 08/25/2014 Ot V76.51 08/25/2014 Ot V72.84 08/25/2014 MAUDE LEW MD Ot 786.2 08/25/2014 MAUDE LEW MD Ot 786.50 09/03/2014 SHANIKA GARDINER APPRAISER PERSONAL PROPERTY Ot 723.4 09/03/2014 SHANIKA GARDINER APPRAISER PERSONAL PROPERTY Ot V57.1 10/01/2014 SHANIKA GARDINER APPRAISER PERSONAL PROPERTY Ot 723.4 BRACHIAL NEURITIS NOS 10/01/2014 SHANIKA GARDINER APPRAISER PERSONAL PROPERTY Ot V57.1 PHYSICAL THERAPY NEC 10/16/2014 SHANIKA GARDINER APPRAISER PERSONAL PROPERTY Ot 721.0 10/16/2014 SHANIKA GARDINER APPRAISER PERSONAL PROPERTY Ot 721.3 10/16/2014 SHANIKA GARDINER APRN Ot 737.30 12/17/2014 Ot 786.2 12/17/2014 Ot 211.3 12/17/2014 Ot 562.10 12/17/2014 Ot V12.72 12/17/2014 Ot V76.51 12/17/2014 Ot V72.84 12/17/2014 MAUDE LEW MD Ot 786.2 12/17/2014 VIPIN PACKER, MAUDE Triana Ot 786.50 12/17/2014 SHANIKA GARDINER APPRAISER PERSONAL PROPERTY Ot 721.0 12/17/2014 SHANIKA GARDINER R APPRAISER PERSONAL PROPERTY Ot 721.3 12/17/2014 SHANIKA GARDINER R APPRAISER PERSONAL PROPERTY Ot 737.30 12/24/2014 Ot 786.2 12/24/2014 Ot 211.3 12/24/2014 Ot 562.10 12/24/2014 Ot V12.72 12/24/2014 Ot V76.51 12/24/2014 Ot V72.84 12/24/2014 VIPIN PACKER, MAUDE Triana Ot 786.2 12/24/2014 VIPIN PACKER, MAUDE Triana Ot 786.50 12/24/2014 SHANIKA GARDINER APPRAISER PERSONAL PROPERTY Ot 721.0 12/24/2014 SHANIKA GARDINER R APPRAISER PERSONAL PROPERTY Ot 721.3 12/24/2014 SHANIKA GARDINER APPRAISER PERSONAL PROPERTY Ot 737.30 01/01/2015 VINAYAK PACKER, ADRIANNA Triana Ot 787.91 DIARRHEA 01/07/2015 Ot 786.2 01/07/2015 Ot 211.3 01/07/2015 Ot 562.10 01/07/2015 Ot V12.72 01/07/2015 Ot V76.51 01/07/2015 Ot V72.84 01/07/2015 VIPIN PACKER, MAUDE Triana Ot 786.2 01/07/2015 VIPIN PACKER, MAUDE Triana Ot 786.50 01/07/2015 SHANIKA GARDINER APPRAISER PERSONAL PROPERTY Ot 721.0 01/07/2015 SHANIKA GARDINER APPRAISER PERSONAL PROPERTY Ot 721.3 01/07/2015 SHANIKA GARDINER R APPRAISER PERSONAL PROPERTY Ot 737.30 01/07/2015 VIPIN PACKER, MAUDE Triana Ot 244.9 01/07/2015 VIPIN PACKER, MAUDE Triana Ot 787.91 01/07/2015 VIPIN PACKER, MAUDE Triana Ot V58.69 01/07/2015 VINAYAK PACKER, ADRIANNA Triana Ot V72.84 01/13/2015 VIPIN PACKER, MAUDE Triana Ot 244.9 01/13/2015 VIPIN PACKER, MADUE Triana Ot 787.91 01/13/2015 VIPIN PACKER, MAUDE Triana Ot V58.69 02/25/2015 VIPIN PACKER, MAUDE Triana Ot 477.9 08/19/2015 Ot 211.3 08/19/2015 Ot 562.10 08/19/2015 Ot V12.72 08/19/2015 Ot V76.51 08/19/2015 Ot V72.84 08/19/2015 MAUDE LEW MD Ot 786.2 08/19/2015 MAUDE LEW MD Ot 786.50 08/19/2015 SHANIKA GARDINER APPRAISER PERSONAL PROPERTY Ot 721.0 08/19/2015 SHANIKA GARDINER APPRAISER PERSONAL PROPERTY Ot 721.3 08/19/2015 SHANIKA GARDINER APPRAISER PERSONAL PROPERTY Ot 737.30 08/19/2015 MAUDE LEW MD Ot 244.9 08/19/2015 MAUDE LEW MD Ot 787.91 08/19/2015 MAUDE LEW MD Ot V58.69 08/19/2015 VINAYAK PACKER, ADRIANNA Triana Ot V72.84 08/19/2015 MAUDE LEW MD Ot 477.9 08/19/2015 KARMEN SALGUERO MD Ot R42 DIZZINESS AND GIDDINESS 08/19/2015 KARMEN SALGUERO MD Ot R55 SYNCOPE AND COLLAPSE 09/08/2015 JASON RICHARDSON MD Ot E03.9 HYPOTHYROIDISM, UNSPECIFIED 09/08/2015 JASON RICHARDSON MD Ot E78.5 HYPERLIPIDEMIA, UNSPECIFIED 09/08/2015 JASON RICHARDSON MD Ot I10 ESSENTIAL (PRIMARY) HYPERTENSION 09/08/2015 JASON RICHARDSON MD Ot I25.10 ATHSCL HEART DISEASE OF [place] CORONARY 09/08/2015 JASON RICHARDSON MD Ot R00.2 PALPITATIONS 09/08/2015 JASON RICHARDSON MD Ot R42 DIZZINESS AND GIDDINESS 09/08/2015 JASON RICHARDSON MD Ot R94.39 ABNORMAL RESULT OF OTHER CARDIOVASCULAR 09/08/2015 JASON RICHARDSON MD Ot Z79.899 OTHER [facility] (CURRENT) DRUG THERAPY 09/08/2015 JASON RICHARDSON MD [...] Z79.899 09/20/2015 JASON RICHARDSON MD Ot Z87.891 01/04/2017 Ot 211.3 BENIGN NEOPLASM LG BOWEL 01/04/2017 Ot 562.10 DIVERTICULOSIS COLON (W/O MENT OF HEMORR 01/04/2017 Ot V12.72 PERSONAL HISTORY OF COLONIC POLYPS 01/04/2017 Ot V76.51 SCREEN MAL NEOP- COLON 01/04/2017 Ot V72.84 EXAM PRE-OPERATIVE NOS 01/04/2017 MAUDE LEW MD Ot 786.2 COUGH 01/04/2017 MAUDE LEW MD Ot 786.50 CHEST PAIN NOS 01/04/2017 SHANIKA GARDINER APPRAISER PERSONAL PROPERTY Ot 721.0 CERVICAL SPONDYLOSIS 01/04/2017 SHANIKA GARDINER APPRAISER PERSONAL PROPERTY Ot 721.3 LUMBOSACRAL SPONDYLOSIS 01/04/2017 SHANIKA GARDINER APPRAISER PERSONAL PROPERTY Ot 737.30 IDIOPATHIC SCOLIOSIS 01/04/2017 MAUDE LEW MD Ot 244.9 HYPOTHYROIDISM NOS 01/04/2017 MAUDE LEW MD Ot 787.91 DIARRHEA 01/04/2017 MAUDE LEW MD Ot V58.69 OTH MED,LT,CURRENT USE 01/04/2017 ADRIANNA LICEA MD Ot V72.84 EXAM PRE-OPERATIVE NOS 01/04/2017 MAUDE LEW MD Ot 477.9 ALLERGIC RHINITIS NOS 01/04/2017 JASON RICHARDSON MD Ot R42 DIZZINESS AND GIDDINESS 01/04/2017 JASON RICHARDSON MD Ot R94.31 ABNORMAL ELECTROCARDIOGRAM [ECG] [EKG] 01/04/2017 JASON RICHARDSON MD Ot Z82.49 FAMILY HX OF [place] HEART DIS AND OTH DI 01/04/2017 AJAY CARBONE APPRAISER PERSONAL PROPERTY Ot R42 DIZZINESS AND GIDDINESS 01/04/2017 AJAY CARBONE APPRAISER PERSONAL PROPERTY Ot T67.8XXA OTHER EFFECTS OF HEAT AND LIGHT, INITIAL 01/05/2017 AJAY CARBONE APPRAISER PERSONAL PROPERTY Ot R42 DIZZINESS AND GIDDINESS 01/05/2017 AJAY CARBONE APPRAISER PERSONAL PROPERTY Ot T67.8XXA OTHER EFFECTS OF HEAT AND LIGHT, INITIAL 01/18/2017 SHANIKA GARDINER APPRAISER PERSONAL PROPERTY Ot M47.814 SPONDYLOSIS W/O MYELOPATHY OR RADICULOPA 01/18/2017 SHANIKA GARDINER APPRAISER PERSONAL PROPERTY Ot M47.816 SPONDYLOSIS W/O MYELOPATHY OR RADICULOPA 01/18/2017 SHANIKA GARDINER APPRAISER PERSONAL PROPERTY Ot M51.36 OTHER INTERVERTEBRAL DISC DEGENERATION, 01/18/2017 SHANIKA GARDINER APPRAISER PERSONAL PROPERTY Ot R07.81 PLEURODYNIA 01/23/2017 SHANIKA GARDINER APPRAISER PERSONAL PROPERTY Ot M47.814 SPONDYLOSIS W/O MYELOPATHY OR RADICULOPA 01/23/2017 SHANIKA GARDINER APPRAISER PERSONAL PROPERTY Ot M47.816 SPONDYLOSIS W/O MYELOPATHY OR RADICULOPA 01/23/2017 SHANIKA GARDINER APPRAISER PERSONAL PROPERTY Ot M51.36 OTHER INTERVERTEBRAL DISC DEGENERATION, 01/23/2017 SHANIKA GARDINER APPRAISER PERSONAL PROPERTY Ot R07.81 PLEURODYNIA 02/07/2017 SHANIKA GARDINER APPRAISER PERSONAL PROPERTY Ot M47.814 SPONDYLOSIS W/O MYELOPATHY OR RADICULOPA 02/07/2017 SHANIKA GARDINER APPRAISER PERSONAL PROPERTY Ot M47.816 SPONDYLOSIS W/O MYELOPATHY OR RADICULOPA 02/07/2017 SHANIKA GARDINER APPRAISER PERSONAL PROPERTY Ot M51.36 OTHER INTERVERTEBRAL DISC DEGENERATION, 02/07/2017 SHANIKA GARDINER APPRAISER PERSONAL PROPERTY Ot R07.81 PLEURODYNIA 02/19/2017 JUNIOR LABOY Ot M54.5 LOW BACK PAIN 02/19/2017 JUNIOR LABOY Ot M54.6 PAIN IN THORACIC SPINE 03/05/2017 SHANIKA GARDINER APPRAISER PERSONAL PROPERTY Ot M47.814 SPONDYLOSIS W/O MYELOPATHY OR RADICULOPA 03/05/2017 SHANIKA GARDINER APPRAISER PERSONAL PROPERTY Ot M47.816 SPONDYLOSIS W/O MYELOPATHY OR RADICULOPA 03/05/2017 SHANIKA GARDINER APPRAISER PERSONAL PROPERTY Ot M51.36 OTHER INTERVERTEBRAL DISC DEGENERATION, 03/05/2017 SHANIKA GARDINER APPRAISER PERSONAL PROPERTY Ot R07.81 PLEURODYNIA 03/06/2017 Ot 211.3 BENIGN NEOPLASM LG BOWEL 03/06/2017 Ot 562.10 DIVERTICULOSIS COLON (W/O MENT OF HEMORR 03/06/2017 Ot V12.72 PERSONAL HISTORY OF COLONIC POLYPS 03/06/2017 Ot V76.51 SCREEN MAL NEOP- COLON 03/06/2017 Ot V72.84 EXAM PRE-OPERATIVE NOS 03/06/2017 MAUDE LEW MD Ot 786.2 COUGH 03/06/2017 MAUDE LEW MD Ot 786.50 CHEST PAIN NOS 03/06/2017 SHANIKA GARDINER APRN Ot 721.0 CERVICAL SPONDYLOSIS 03/06/2017 SHANIKA GARDINER APRN Ot 721.3 LUMBOSACRAL SPONDYLOSIS 03/06/2017 SHANIKA GARDINER APRN Ot 737.30 IDIOPATHIC SCOLIOSIS 03/06/2017 MAUDE LEW MD Ot 244.9 HYPOTHYROIDISM NOS 03/06/2017 MAUDE LEW MD Ot 787.91 DIARRHEA 03/06/2017 MAUDE LEW MD Ot V58.69 OTH MED,LT,CURRENT USE 03/06/2017 ADRIANNA LICEA MD Ot V72.84 EXAM PRE-OPERATIVE NOS 03/06/2017 MAUDE LEW MD Ot 477.9 ALLERGIC RHINITIS NOS 03/06/2017 JASON RICHARDSON MD Ot R42 DIZZINESS AND GIDDINESS 03/06/2017 JASON RICHARDSON MD Ot R94.31 ABNORMAL ELECTROCARDIOGRAM [ECG] [EKG] 03/06/2017 JASON RICHARDSON MD Ot Z82.49 FAMILY HX OF [place] HEART DIS AND OTH DI 03/30/2017 SWEET PA, JUNIOR R Ot M54.5 LOW BACK PAIN 03/30/2017 SWEET PA, JUNIOR R Ot M54.6 PAIN IN THORACIC SPINE 04/07/2017 SWEET PA, JUNIOR R Ot M54.5 LOW BACK PAIN 04/07/2017 SWEET PA, JUNIOR R Ot M54.6 PAIN IN THORACIC SPINE 04/09/2017 SWEET PA, JUNIOR R Ot M54.5 LOW BACK PAIN 04/09/2017 SWEET PA, JUNIOR R Ot M54.6 PAIN IN THORACIC SPINE 04/10/2017 SWEET PA, JUNIOR R Ot M54.5 LOW BACK PAIN 04/10/2017 SWEET PA, JUNIOR R Ot M54.6 PAIN IN THORACIC SPINE 04/14/2017 SWEET PA, JUNIOR R Ot M54.5 LOW BACK PAIN 04/14/2017 SWEET PA, JUNIOR R Ot M54.6 PAIN IN THORACIC SPINE 05/16/2017 ZULEYKASHANIKA APPRAISER PERSONAL PROPERTY Ot M47.814 SPONDYLOSIS W/O MYELOPATHY OR RADICULOPA 05/16/2017 SHANIKA GARDINER APPRAISER PERSONAL PROPERTY Ot M47.816 SPONDYLOSIS W/O MYELOPATHY OR RADICULOPA 05/16/2017 SHANIKA GARDINER APPRAISER PERSONAL PROPERTY Ot M51.36 OTHER INTERVERTEBRAL DISC DEGENERATION, 05/16/2017 SHANIKA GARDINER APPRAISER PERSONAL PROPERTY Ot R07.81 PLEURODYNIA 05/16/2017 SWEET PA, JUNIOR R Ot M54.5 LOW BACK PAIN 05/16/2017 SWEET PA, JUNIOR R Ot M54.6 PAIN IN THORACIC SPINE 06/01/2017 SWEET PA, JUNIOR R Ot M54.5 LOW BACK PAIN 06/01/2017 SWEET PA, JUNIOR R Ot M54.6 PAIN IN THORACIC SPINE 06/08/2017 SWEET PA, JUNIOR R Ot M51.37 OTHER INTERVERTEBRAL DISC DEGENERATION, 2017 SWEET PA, JUNIOR R Ot M51.37 OTHER INTERVERTEBRAL DISC DEGENERATION, 07/08/2017 SWEET PA, JUNIOR R Ot M54.5 LOW BACK PAIN 07/08/2017 SWEET PA, JUNIOR R Ot M54.6 PAIN IN THORACIC SPINE 07/23/2017 MAUDE LEW MD Ot M54.5 LOW BACK PAIN 08/24/2017 MAUDE LEW MD Ot M54.5 LOW BACK PAIN 08/24/2017 MAUDE LEW MD Ot M54.5 LOW BACK PAIN 08/31/2017 MAUDE LEW MD Ot M54.5 LOW BACK PAIN 10/02/2017 MAUDE LEW MD Ot M54.5 LOW BACK PAIN 12/21/2017 SHANIKA GARDINER APPRAISER PERSONAL PROPERTY Ot J44.9 CHRONIC OBSTRUCTIVE PULMONARY DISEASE, U 12/21/2017 SHANIKA GARDINER APPRAISER PERSONAL PROPERTY Ot R50.9 FEVER, UNSPECIFIED 12/21/2017 ZULEYKA, SHANIKA R APPRAISER PERSONAL PROPERTY Ot J44.9 CHRONIC OBSTRUCTIVE PULMONARY DISEASE, U 12/21/2017 ZULEYKA, SHANIKA R APPRAISER PERSONAL PROPERTY Ot R50.9 FEVER, UNSPECIFIED 01/11/2018 ZULEYKA, SHANIKA R APPRAISER PERSONAL PROPERTY Ot J44.9 CHRONIC OBSTRUCTIVE PULMONARY DISEASE, U 01/11/2018 ZULEYKA, SHANIKA R APPRAISER PERSONAL PROPERTY Ot R50.9 FEVER, UNSPECIFIED 01/28/2018 ZULEYKA, SHANIKA R APPRAISER PERSONAL PROPERTY Ot J44.9 CHRONIC OBSTRUCTIVE PULMONARY DISEASE, U 01/28/2018 ZULEYKA, SHANIKA R APPRAISER PERSONAL PROPERTY Ot R50.9 FEVER, UNSPECIFIED 04/16/2018 ZULEYKA, SHANIKA R APPRAISER PERSONAL PROPERTY Ot J44.9 CHRONIC OBSTRUCTIVE PULMONARY DISEASE, U 04/16/2018 ZULEYKA, SHANIKA R APPRAISER PERSONAL PROPERTY Ot R50.9 FEVER, UNSPECIFIED 05/24/2018 MAGGY MEYER Ot M54.5 LOW BACK PAIN 05/29/2018 MAGGY MEYER Ot M54.5 LOW BACK PAIN 06/03/2018 MAGGY MEYER Ot M54.5 LOW BACK PAIN 06/10/2018 GABE HAIDER Ot E78.2 MIXED HYPERLIPIDEMIA 06/10/2018 GABE HAIDER Ot I10 ESSENTIAL (PRIMARY) HYPERTENSION 06/10/2018 GABE HAIDER Ot I25.10 ATHSCL HEART DISEASE OF [place] CORONARY 06/10/2018 GABE HAIDER Ot I34.0 NONRHEUMATIC MITRAL (VALVE) INSUFFICIENC 06/10/2018 GABE HAIDER Ot Z82.49 FAMILY HX OF [place] HEART DIS AND OTH DI 06/11/2018 SHANIKA GARDINER R APPRAISER PERSONAL PROPERTY Ot K76.0 FATTY (CHANGE OF) LIVER, NOT ELSEWHERE C 06/11/2018 SHANIKA GARDINER R APPRAISER PERSONAL PROPERTY Ot N28.1 CYST OF KIDNEY, ACQUIRED 07/01/2018 GABE HAIDER Ot E78.2 MIXED HYPERLIPIDEMIA 07/01/2018 GABE HAIDER Ot I10 ESSENTIAL (PRIMARY) HYPERTENSION 07/01/2018 GABE HAIDER Ot I25.10 ATHSCL HEART DISEASE OF [place] CORONARY 07/01/2018 GABE HAIDER Ot I34.0 NONRHEUMATIC MITRAL (VALVE) INSUFFICIENC 07/01/2018 GABE HAIDER Ot K76.0 FATTY (CHANGE OF) LIVER, NOT ELSEWHERE C 07/01/2018 GABE HAIDER Ot N28.1 CYST OF KIDNEY, ACQUIRED 07/01/2018 GABE HAIDER Ot Z82.49 FAMILY HX OF [place] HEART DIS AND OTH DI 07/04/2018 MAGGY MEYER Ot M54.5 LOW BACK PAIN 07/08/2018 DUNG ACHARYA MD, Ot Z01.818 ENCOUNTER FOR OTHER PREPROCEDURAL EXAMIN 07/08/2018 DUNG ACHARYA MD, Ot R10.11 RIGHT UPPER QUADRANT PAIN 07/10/2018 DUNG ACHARYA MD, Ot Z01.818 ENCOUNTER FOR OTHER PREPROCEDURAL EXAMIN 07/11/2018 DUNG ACHARYA MD Ot C61 MALIGNANT NEOPLASM OF PROSTATE 07/11/2018 DUNG ACHARYA MD Ot E03.9 HYPOTHYROIDISM, UNSPECIFIED 07/11/2018 DUNG ACHARYA MD Ot E78.00 PURE HYPERCHOLESTEROLEMIA, UNSPECIFIED 07/11/2018 DUNG ACHARYA MD Ot F17.220 NICOTINE DEPENDENCE, CHEWING TOBACCO, UN 07/11/2018 DUNG ACHARYA MD Ot F32.9 MAJOR DEPRESSIVE DISORDER, SINGLE EPISOD 07/11/2018 DUNG ACHARYA MD, Ot F41.9 ANXIETY DISORDER, UNSPECIFIED 07/11/2018 DUNG ACHARYA MD Ot I10 ESSENTIAL (PRIMARY) HYPERTENSION 07/11/2018 DUNG ACHARYA MD, Ot J44.9 CHRONIC OBSTRUCTIVE PULMONARY DISEASE, U 07/11/2018 DUNG ACHARYA MD, Ot K21.0 GASTRO-ESOPHAGEAL REFLUX DISEASE WITH ES 07/11/2018 DUNG ACHARYA MD, Ot K21.9 GASTRO-ESOPHAGEAL REFLUX DISEASE WITHOUT 07/11/2018 DUNG ACHARYA MD, Ot K22.70 PHILIP'S ESOPHAGUS WITHOUT DYSPLASIA 07/11/2018 DUNG ACHARYA MD, Ot K29.70 GASTRITIS, UNSPECIFIED, WITHOUT BLEEDING 07/11/2018 DUNG ACHARYA MD, Ot K44.9 DIAPHRAGMATIC HERNIA WITHOUT OBSTRUCTION 07/11/2018 DUNG ACHARYA MD, Ot K64.0 FIRST DEGREE HEMORRHOIDS 07/11/2018 DUNG ACHARYA MD, Ot K81.1 CHRONIC CHOLECYSTITIS 07/11/2018 DUNG ACHARYA MD, Ot Z79.82 [facility] (CURRENT) USE OF ASPIRIN 07/11/2018 DUNG ACHARYA MD, Ot Z79.899 OTHER OCCUPANCY SPECIALIST (CURRENT) DRUG THERAPY 07/11/2018 DUNG ACHARYA MD, Ot Z86.010 PERSONAL HISTORY OF COLONIC POLYPS 07/14/2018 DUNG ACHARYA MD, Ot Z01.818 ENCOUNTER FOR OTHER PREPROCEDURAL EXAMIN 07/16/2018 DUNG ACHARYA MD, Ot C61 MALIGNANT NEOPLASM OF PROSTATE 07/16/2018 DUNG ACHARYA MD, Ot E03.9 HYPOTHYROIDISM, UNSPECIFIED 07/16/2018 DUNG ACHARYA MD, Ot E78.00 PURE HYPERCHOLESTEROLEMIA, UNSPECIFIED 07/16/2018 DUNG ACHARYA MD, Ot F17.220 NICOTINE DEPENDENCE, CHEWING TOBACCO, UN 07/16/2018 DUNG ACHARYA MD, Ot F32.9 MAJOR DEPRESSIVE DISORDER, SINGLE EPISOD 07/16/2018 DUNG ACHARYA MD, Ot F41.9 ANXIETY DISORDER, UNSPECIFIED 07/16/2018 DUNG ACHARYA MD, Ot I10 ESSENTIAL (PRIMARY) HYPERTENSION 07/16/2018 DUNG ACHARYA MD, Ot J44.9 CHRONIC OBSTRUCTIVE PULMONARY DISEASE, U 07/16/2018 DUNG ACHARYA MD, Ot K21.0 GASTRO-ESOPHAGEAL REFLUX DISEASE WITH ES 07/16/2018 DUNG ACHARYA MD, Ot K21.9 GASTRO-ESOPHAGEAL REFLUX DISEASE WITHOUT 07/16/2018 DUNG ACHARYA MD, Ot K22.70 PHILIP'S ESOPHAGUS WITHOUT DYSPLASIA 07/16/2018 DUNG ACHARYA MD, Ot K29.70 GASTRITIS, UNSPECIFIED, WITHOUT BLEEDING 07/16/2018 DUNG ACHARYA MD, Ot K44.9 DIAPHRAGMATIC HERNIA WITHOUT OBSTRUCTION 07/16/2018 DUNG ACHARYA MD, Ot K64.0 FIRST DEGREE HEMORRHOIDS 07/16/2018 DUNG ACHARYA MD, Ot K81.1 CHRONIC CHOLECYSTITIS 07/16/2018 DUNG ACHARYA MD, Ot Z79.82 OCCUPANCY SPECIALIST (CURRENT) USE OF ASPIRIN 07/16/2018 DUNG ACHARYA MD Ot Z79.899 OTHER [facility] (CURRENT) DRUG THERAPY 07/16/2018 DUNG ACHARYA MD, Ot Z86.010 PERSONAL HISTORY OF COLONIC POLYPS 07/18/2018 NOLANDPERFECTO DIAZ GABE Nessa Ot E78.2 MIXED HYPERLIPIDEMIA 07/18/2018 NOLANDPERFECTO DIAZ GABE K Ot I10 ESSENTIAL (PRIMARY) HYPERTENSION 07/18/2018 NOLANDPERFECTO DIAZ GABE Nessa Ot I25.10 ATHSCL HEART DISEASE OF [place] CORONARY 07/18/2018 NOLAND-ZULEYKA DIAZ GABE K Ot I34.0 NONRHEUMATIC MITRAL (VALVE) INSUFFICIENC 07/18/2018 NOLANDPERFECTO DIAZ GABE Szymanski Ot K76.0 FATTY (CHANGE OF) LIVER, NOT ELSEWHERE C 07/18/2018 NOLAND-ZULEY[place] DIAZ GABE Nessa Ot N28.1 CYST OF KIDNEY, ACQUIRED 07/18/2018 NOLANDPERFECTO DIAZ GABE K Ot Z82.49 FAMILY HX OF [place] HEART DIS AND OTH DI 07/26/2018 DUNG ACHARYA MD Ot R10.11 RIGHT UPPER QUADRANT PAIN 08/07/2018 NOLANDPERFECTO DIAZ GABE Nessa Ot E78.2 MIXED HYPERLIPIDEMIA 08/07/2018 NOLANDPERFECTO DIAZ GABE K Ot I10 ESSENTIAL (PRIMARY) HYPERTENSION 08/07/2018 NOLAND-ZULEYKA DIAZ GABE K Ot I25.10 ATHSCL HEART DISEASE OF [place] CORONARY 08/07/2018 NOLAND-ZULEYKA DIAZ GABE Szymanski Ot I34.0 NONRHEUMATIC MITRAL (VALVE) INSUFFICIENC 08/07/2018 NOLANDPERFECTO DIAZ GABE Nessa Ot K76.0 FATTY (CHANGE OF) LIVER, NOT ELSEWHERE C 08/07/2018 [place]-ZULEY[place] DIAZ GABE Nessa Ot N28.1 CYST OF KIDNEY, ACQUIRED 08/07/2018 NOLAND-ZULEYKA DIAZ GABE K Ot Z82.49 FAMILY HX OF [place] HEART DIS AND OTH DI 08/15/2018 DUNG ACHARYA MD Ot R10.11 RIGHT UPPER QUADRANT PAIN 09/18/2018 VIPIN PACKER, MAUDE Triana Ot M54.12 RADICULOPATHY, CERVICAL REGION 09/18/2018 MAUDE LEW MD, Ot M54.12 RADICULOPATHY, CERVICAL REGION 10/30/2018 MAUDE LEW MD, Ot M54.12 RADICULOPATHY, CERVICAL REGION 11/07/2018 MAUDE LEW MD, Ot M54.12 RADICULOPATHY, CERVICAL REGION 11/15/2018 MAUDE LEW MD, Ot M54.12 RADICULOPATHY, CERVICAL REGION 11/18/2018 SHANIKA GARDINER APPRAISER PERSONAL PROPERTY Ot M47.814 SPONDYLOSIS W/O MYELOPATHY OR RADICULOPA 11/18/2018 SHANIKA GARDINER R APPRAISER PERSONAL PROPERTY Ot M47.816 SPONDYLOSIS W/O MYELOPATHY OR RADICULOPA 11/18/2018 SHANIKA GARDINER APPRAISER PERSONAL PROPERTY Ot M51.36 OTHER INTERVERTEBRAL DISC DEGENERATION, 11/18/2018 SHANIKA GARDINER APPRAISER PERSONAL PROPERTY Ot R07.81 PLEURODYNIA 11/18/2018 JUNIOR LABOY R Ot M51.37 OTHER INTERVERTEBRAL DISC DEGENERATION, 11/18/2018 SHANIKA GARDINER APPRAISER PERSONAL PROPERTY Ot J44.9 CHRONIC OBSTRUCTIVE PULMONARY DISEASE, U 11/18/2018 SHANIKA GARDINER APPRAISER PERSONAL PROPERTY Ot R50.9 FEVER, UNSPECIFIED 11/18/2018 SHANIKA GARDINER APPRAISER PERSONAL PROPERTY Ot K76.0 FATTY (CHANGE OF) LIVER, NOT ELSEWHERE C 11/18/2018 SHANIKA GARDINER APPRAISER PERSONAL PROPERTY Ot N28.1 CYST OF KIDNEY, ACQUIRED 11/18/2018 MAUDE LEW MD, Ot M54.12 RADICULOPATHY, CERVICAL REGION 11/21/2018 MAUDE LEW MD, Ot N28.1 CYST OF KIDNEY, ACQUIRED 12/04/2018 MAUDE LEW MD, Ot M54.12 RADICULOPATHY, CERVICAL REGION 12/10/2018 MAUDE LEW MD, Ot N28.1 CYST OF KIDNEY, ACQUIRED 01/03/2019 MAUDE LEW MD, Ot N28.1 CYST OF KIDNEY, ACQUIRED Procedures There is no data. Results Test Result Range Complete blood count (CBC) with automated white blood cell (WBC) differential - 01/04/17 17:04 Blood leukocytes automated count (number/volume) 8.4 10*3/uL 4.3-11.0 Blood erythrocytes automated count (number/volume) 4.52 10*6/uL 4.35-5.85 Venous blood hemoglobin measurement (mass/volume) 14.5 g/dL 13.3-17.7 Blood hematocrit (volume fraction) 43 % 40-54 Automated erythrocyte mean corpuscular volume 94 [foz_us] 80-99 Automated erythrocyte mean corpuscular hemoglobin (mass per erythrocyte) 32 pg 25-34 Automated erythrocyte mean corpuscular hemoglobin concentration measurement (mass/volume) 34 g/dL 32-36 Automated erythrocyte distribution width ratio 13.0 % 10.0- 14.5 Automated blood platelet count (count/volume) 224 10*3/uL 130-400 Automated blood platelet mean volume measurement 9.4 [foz_us] 7.4-10.4 Automated blood neutrophils/100 leukocytes 79 % 42-75 Automated blood lymphocytes/100 leukocytes 12 % 12-44 Blood monocytes/100 leukocytes 8 % 0-12 Automated blood eosinophils/100 leukocytes 1 % 0-10 Automated blood basophils/100 leukocytes 0 % 0-10 Blood neutrophils automated count (number/volume) 6.6 10*3 1.8-7.8 Blood lymphocytes automated count (number/volume) 1.0 10*3 1.0-4.0 Blood monocytes automated count (number/volume) 0.7 10*3 0.0- 1.0 Automated eosinophil count 0.1 10*3/uL 0.0-0.3 Automated blood basophil count (count/volume) 0.0 10*3/uL 0.0-0.1 Comprehensive metabolic panel - 01/04/17 17:04 Serum or plasma sodium measurement (moles/volume) 136 mmol/L 135-145 Serum or plasma potassium measurement (moles/volume) 4.2 mmol/L 3.6-5.0 Serum or plasma chloride measurement (moles/volume) 101 mmol/L 98-107 Carbon dioxide 23 mmol/L 21-32 Serum or plasma anion gap determination (moles/volume) 12 mmol/L 5-14 Serum or plasma urea nitrogen measurement (mass/volume) 13 mg/dL 7-18 Serum or plasma creatinine measurement (mass/volume) 0.89 mg/dL 0.60-1.30 Serum or plasma urea nitrogen/creatinine mass ratio 15 NRG Serum or plasma creatinine measurement with calculation of estimated glomerular filtration rate > NRG Serum or plasma glucose measurement (mass/volume) 102 mg/dL 70-105 Serum or plasma calcium measurement (mass/volume) 9.3 mg/dL 8.5-10.1 Serum or plasma total bilirubin measurement (mass/volume) 0.9 mg/dL 0.1-1.0 Serum or plasma alkaline phosphatase measurement (enzymatic activity/volume) 45 U/L 40-136 Serum or plasma aspartate aminotransferase measurement (enzymatic activity/volume) 25 U/L 5-34 Serum or plasma alanine aminotransferase measurement (enzymatic activity/volume) 24 U/L 0-55 Serum or plasma protein measurement (mass/volume) 7.4 g/dL 6.4-8.2 Serum or plasma albumin measurement (mass/volume) 4.6 g/dL 3.2-4.5 Myoglobin, serum - 01/04/17 17:04 Myoglobin, serum 51.5 ng/mL 10.0-92.0 Serum or plasma troponin i.cardiac measurement (mass/volume) - 01/04/17 17:04 Serum or plasma troponin i.cardiac measurement (mass/volume) < ng/mL <0.30 Myoglobin, serum - 01/04/17 17:04 Myoglobin, serum 51.5 ng/mL 10.0-92.0 Methicillin resistant Staphylococcus aureus (MRSA) screening culture - 07/11/18 09:55 Methicillin resistant Staphylococcus aureus (MRSA) screening culture NEG NRG Complete blood count (CBC) with automated white blood cell (WBC) differential - 07/11/18 10:05 Blood leukocytes automated count (number/volume) 4.8 10*3/uL 4.3-11.0 Blood erythrocytes automated count (number/volume) 4.96 10*6/uL 4.35-5.85 Venous blood hemoglobin measurement (mass/volume) 15.5 g/dL 13.3-17.7 Blood hematocrit (volume fraction) 47 % 40-54 Automated erythrocyte mean corpuscular volume 94 [foz_us] 80-99 Automated erythrocyte mean corpuscular hemoglobin (mass per erythrocyte) 31 pg 25-34 Automated erythrocyte mean corpuscular hemoglobin concentration measurement (mass/volume) 33 g/dL 32-36 Automated erythrocyte distribution width ratio 12.6 % 10.0- 14.5 Automated blood platelet count (count/volume) 236 10*3/uL 130-400 Automated blood platelet mean volume measurement 9.0 [foz_us] 7.4-10.4 Automated blood neutrophils/100 leukocytes 60 % 42-75 Automated blood lymphocytes/100 leukocytes 25 % 12-44 Blood monocytes/100 leukocytes 12 % 0-12 Automated blood eosinophils/100 leukocytes 2 % 0-10 Automated blood basophils/100 leukocytes 1 % 0-10 Blood neutrophils automated count (number/volume) 2.9 10*3 1.8-7.8 Blood lymphocytes automated count (number/volume) 1.2 10*3 1.0-4.0 Blood monocytes automated count (number/volume) 0.6 10*3 0.0- 1.0 Automated eosinophil count 0.1 10*3/uL 0.0-0.3 Automated blood basophil count (count/volume) 0.0 10*3/uL 0.0-0.1 Encounters ACCT No. Visit Date/Time Discharge Status Pt. Type Provider Facility Loc./Unit Complaint [id number] 10/10/2018 09:23:00 12/04/2018 15:50:00 DIS Outpatient MAUDE LEW MD [facility] REHAB CERVICAL RADICULOPATHY [id number] 11/20/2018 09:45:00 11/20/2018 23:59:59 CLS Outpatient MAUDE LEW MD [facility] RAD R RENAL CYST [id number] 07/11/2018 09:38:00 07/11/2018 16:25:00 DIS Outpatient DUNG ACHARYA MD [facility] SDC BILIARY DYSKENESIA [id number] 07/08/2018 05:45:00 07/08/2018 10:27:00 DIS Outpatient DUNG ACHARYA MD [facility] PREOP BILIARY DYSKENESIA [id number] 07/05/2018 09:14:00 07/05/2018 23:59:59 CLS Outpatient DUNG ACHARYA MD [facility] CARD RUQ PAIN [id number] 05/27/2018 09:15:00 07/04/2018 13:28:00 DIS Outpatient MAGGY MEYER [facility] REHAB BACK PAIN;MUSCLE STRAIN OF BACK [id number] 06/06/2018 10:45:00 06/06/2018 23:59:59 CLS Outpatient GABE HAIDER [facility] CARD CAD,BENIGN HTN [id number] 06/06/2018 07:58:00 06/06/2018 23:59:59 CLS Outpatient SHANIKA GARDINER APPRAISER PERSONAL PROPERTY [facility] RAD RT QUADRANT PAIN [id number] 12/20/2017 13:48:00 12/20/2017 23:59:59 CLS Outpatient SHANIKA GARDINER APRN [facility] RAD SOB, FEVER [id number] 08/20/2017 13:00:00 10/02/2017 09:08:00 DIS Outpatient MAUDE LEW MD [facility] REHAB LOW BACK PAIN WITH SCIATICA [id number] 07/09/2017 00:14:00 07/09/2017 23:59:59 CLS Preadmit SWEET PA, JUNIOR R [facility] REHAB BACK PAIN/LUMBAR AND THORACIC [id number] 06/18/2017 09:15:00 07/08/2017 00:01:00 DIS Outpatient SWEET PA, JUNIOR R [facility] REHAB BACK PAIN/LUMBAR AND THORACIC [id number] 05/18/2017 08:58:00 05/18/2017 23:59:59 CLS Outpatient SWEET PA, JUNIOR R [facility] RAD BACK PAIN [id number] 04/03/2017 13:42:00 04/07/2017 00:01:00 DIS Outpatient SWEET PA, JUNIOR R [facility] REHAB BACK PAIN/LUMBAR AND THORACIC [id number] 01/17/2017 15:02:00 01/17/2017 23:59:59 CLS Outpatient SHANIKA GARDINER APPRAISER PERSONAL PROPERTY [facility] RAD RIB PAIN [id number] 01/04/2017 16:57:00 01/04/2017 18:20:00 DIS Emergency AJAY CARBONE APPRAISER PERSONAL PROPERTY [facility] ER HOT FLASHES/LIGHT HEADEDNESS [id number] 09/08/2015 13:03:00 09/08/2015 20:00:00 DIS Outpatient JASON RICHARDSON MD [facility] CATH ABNORMAL STRESS TEST,DIZZINESS, HLP [id number] 09/06/2015 08:25:00 09/06/2015 23:59:59 CLS Outpatient DEBRA PACKER, JASON Carroll [facility] CARD ABNORMAL ECG,DIZZINESS [id number] 08/19/2015 09:22:00 08/19/2015 15:40:00 DIS Emergency KARMEN SALGUERO MD [facility] ER LIGHTHEADED/SWEATY PALMS [id number] 02/08/2015 08:12:00 02/08/2015 23:59:59 CLS Outpatient MAUDE LEW MD [facility] RAD ALLERGIC RHINITIS [id number] 01/01/2015 07:12:00 01/01/2015 09:56:00 DIS Outpatient ADRIANNA LICEA MD [facility] SDC DIARRHEA [id number] 12/31/2014 06:33:00 12/31/2014 23:59:59 CLS Outpatient ADRIANNA LICEA MD [facility] PREOP DIARRHEA [id number] 12/24/2014 10:37:00 12/24/2014 23:59:59 CLS Outpatient MAUDE LEW MD [facility] LAB HYPOTHYRODISM [id number] 10/06/2014 08:45:00 10/06/2014 23:59:59 CLS Outpatient SHANIKA GARDINER APRN [facility] RAD NECK/UPPER BACK PAIN RADIATES DOWN R ARM [id number] 08/26/2014 14:02:00 08/26/2014 23:59:59 CLS Outpatient SHANIKA GARDINER APRN [facility] REHAB CERVICAL RADICULOPATHY [id number] 05/19/2013 08:29:00 05/19/2013 23:59:59 CLS Outpatient MAUDE LEW MD [facility] RAD COUGH/WITH SPUTUM [id number] 09/06/2012 07:57:00 Document Registration [id number] 11/21/2011 07:56:00 Document Registration [id number] 11/20/2011 07:47:00 Document Registration [id number] 08/02/2009 16:22:00 Document Registration
--- NOTE | 2019-02-12 16:56 | ED Chest Pain ---
General Stated Complaint: SWEATS,DIZZY Source: patient Exam Limitations: no limitations History of Present Illness Date Seen by Provider: Feb 12, 2019 Time Seen by Provider: 16:43 Initial Comments This 68-year-old white female presents complaining of chest pain. The patient has had associated diaphoresis and nausea. Patient was seen in the clinic and referred to the emergency department. On arrival in emergency department patient's symptoms spontaneously abated. However the patient relates this is truly unusual for him and he is most concerned. Further history from the patient reveals that the episodes really began yesterday afternoon. He has had 3 of them. The last approximate 5 minutes. They're manifested as having an upset stomach with the diaphoresis. These episodes have been occurring since he had his gallbladder removed in the last year. The patient is taken medication for irritable bowel syndrome without improvement. Patient has remained asymptomatic in the emergency department. Allergies and Home Medications Allergies Coded Allergies: Sulfa (Sulfonamide Antibiotics) (Unverified Allergy, Intermediate, 11/20/11) Home Medications Aspirin 81 Mg Tablet.dr, 81 MG PO DAILY, (Reported) Hydrocodone/Acetaminophen 1 Each Tablet, 1-2 EACH PO Q4H PRN for PAIN-MODERATE Prescribed by: CORA GARCIA on 07/11/18 1345 Levothyroxine Sodium 50 Mcg Tablet, 50 MCG PO DAILY, (Reported) Lisinopril 20 Mg Tablet, 20 MG PO DAILY, (Reported) Breeding-3 Fatty Acids/Fish Oil 1 Each Capsule.dr, 1 EACH PO DAILY, (Reported) Pantoprazole Sodium 40 Mg Tablet.dr, 40 MG PO DAILY Prescribed by: CORA GARCIA on 07/11/18 1345 Ranitidine HCl 150 Mg Tablet, 150 MG PO BID, (Reported) Sertraline HCl 50 Mg Tablet, 50 MG PO DAILY, (Reported) Simethicone 180 Mg Capsule, 180 MG PO BID PRN for GAS, (Reported) Sucralfate 1 Gm Tablet, 1 GM PO ACHS, (Reported) Patient Home Medication List Home Medication List Reviewed: Yes Review of Systems Review of Systems Constitutional: No chills; diaphoresis; No fever EENTM: No Blurred Vision Respiratory: Denies Cough Cardiovascular: See HPI, Chest Pain; Denies Irregular Heart Rate, Denies Palpitations, Denies Syncope Gastrointestinal: Denies Abdominal Pain, Denies Diarrhea; Nausea; Denies Vomiting Genitourinary: No Symptoms Reported Musculoskeletal: no symptoms reported Skin: no symptoms reported Psychiatric/Neurological: No Symptoms Reported Endocrine: No Symptoms Reported Hematologic/Lymphatic: No Symptoms Reported Past Jjkivcb-Tunzes-Usjfmn Hx Past Med/Social Hx: Reviewed Nursing Past Med/Soc Hx Patient Social History Alcohol Beverage of Choice: Beer Recreational Drug Use: Yes Drug of Choice: THC Type Used: Smokeless Tobacco Former Smoker, Quit: Jul 09, 2013 2nd Hand Smoke Exposure: No Recent Foreign Travel: No Contact w/Someone Who Travel: No Recent Hopitalizations: No Immunizations Up To Date Date of Pneumonia Vaccine: Apr 08, 2018 Date of Influenza Vaccine: Apr 08, 2018 Seasonal Allergies Seasonal Allergies: Yes Past Medical History Surgeries: Yes Prostatectomy, Tonsillectomy Respiratory: No (early onset of COPD) Cardiac: Yes Hypertension Neurological: No Genitourinary: No Gastrointestinal: Yes Gastroesophageal Reflux, Gall Bladder Disease Musculoskeletal: Yes Arthritis Endocrine: Yes Hypothyroidsim HEENT: No Cancer: Yes Prostate What Type of Treatment Did You: Surgical Intervention Psychosocial: No Integumentary: No Blood Disorders: No Physical Exam Vital Signs Vital Signs - First Documented 02/12/19 16:43 Temp 98.9 Pulse 70 Resp 20 B/P (MAP) 176/94 (121) Pulse Ox 98 O2 Delivery Room Air Capillary Refill : Height, Weight, BMI Height: 5'9.00" Weight: 132lbs. 0.0oz. [id number]; 19.5 BMI Method:Stated General Appearance: No Apparent Distress, WD/WN HEENT: Normal ENT Inspection Neck: Normal Inspection Respiratory: Lungs Clear, Normal Breath Sounds, No Respiratory Distress Cardiovascular: Regular Rate, Rhythm, Normal Peripheral Pulses Gastrointestinal: Normal Bowel Sounds, Non Tender, Soft Extremity: Normal Inspection, Normal Range of Motion, Non Tender Neurologic/Psychiatric: Alert, Oriented x3, No Motor/Sensory Deficits, Normal Mood/Affect Skin: Normal Color, Warm/Dry Progress/Results/Core Measures Results/Orders Lab Results Laboratory Tests Test 02/12/19 16:47 Range/Units White Blood Count 6.2 4.3-11.0 10^3/uL Red Blood Count 5.07 4.35-5.85 10^6/uL Hemoglobin 16.1 13.3-17.7 G/DL Hematocrit 47 40-54 % Mean Corpuscular Volume 93 80-99 FL Mean Corpuscular Hemoglobin 32 25-34 PG Mean Corpuscular Hemoglobin Concent 34 32-36 G/DL Red Cell Distribution Width 13.1 10.0-14.5 % Platelet Count 252 130-400 10^3/uL Mean Platelet Volume 9.3 7.4-10.4 FL Neutrophils (%) (Auto) 58 42-75 % Lymphocytes (%) (Auto) 27 12-44 % Monocytes (%) (Auto) 13 H 0-12 % Eosinophils (%) (Auto) 1 0-10 % Basophils (%) (Auto) 0 0-10 % Neutrophils # (Auto) 3.6 1.8-7.8 X 10^3 Lymphocytes # (Auto) 1.7 1.0-4.0 X 10^3 Monocytes # (Auto) 0.8 0.0-1.0 X 10^3 Eosinophils # (Auto) 0.1 0.0-0.3 10^3/uL Basophils # (Auto) 0.0 0.0-0.1 10^3/uL Prothrombin Time 12.9 12.2-14.7 SEC INR Comment 0.9 0.8-1.4 Activated Partial Thromboplast Time 28 24-35 SEC Sodium Level 138 135-145 MMOL/L Potassium Level 3.8 3.6-5.0 MMOL/L Chloride Level 99 98-107 MMOL/L Carbon Dioxide Level 29 21-32 MMOL/L Anion Gap 10 5-14 MMOL/L Blood Urea Nitrogen 14 7-18 MG/DL Creatinine 1.04 0.60-1.30 MG/DL Estimat Glomerular Filtration Rate > 60 BUN/Creatinine Ratio 13 Glucose Level 93 70-105 MG/DL Calcium Level 9.9 8.5-10.1 MG/DL Corrected Calcium 8.5-10.1 MG/DL Magnesium Level 2.4 1.8-2.4 MG/DL Total Bilirubin 1.0 0.1-1.0 MG/DL Aspartate Amino Transf (AST/SGOT) 22 5-34 U/L Alanine Aminotransferase (ALT/SGPT) 27 0-55 U/L Alkaline Phosphatase 50 40-136 U/L Myoglobin 42.2 10.0-92.0 NG/ML Troponin I < 0.028 <0.028 NG/ML Total Protein 7.8 6.4-8.2 GM/DL Albumin 4.8 H 3.2-4.5 GM/DL My Orders Orders - ADRIANNA ACEVES MD Cbc With Automated Diff (02/12/19 16:42) Magnesium (02/12/19 16:42) Chest 1 View, Ap/Pa Only (02/12/19 16:42) Ekg Tracing (02/12/19 16:42) Cardiac Profile 1 (02/12/19 16:42) Comprehensive Metabolic Panel (02/12/19 16:42) Myoglobin Serum (02/12/19 16:42) Protime With Inr (02/12/19 16:42) Partial Thromboplastin Time (02/12/19 16:42) O2 (02/12/19 16:42) Monitor-Rhythm Ecg Trace Only (02/12/19 16:42) Lipid Panel (02/13/19 06:00) Ed Iv/Invasive Line Start (02/12/19 16:42) Vital Signs/I&O 02/12/19 16:43 Temp 98.9 Pulse 70 Resp 20 B/P (MAP) 176/94 (121) Pulse Ox 98 O2 Delivery Room Air Progress Progress Note : Time: 17:50 Progress Note The patient's laboratory evaluation demonstrated a normal sinus rhythm without acute current of injury. Patient's chest x-ray was similarly benign. Laboratory evaluation was within normal limits with a normal troponin. I discussed the findings with the patient. We agreed on treatment plan a trial of Protonix and a close follow-up with Dr. Lew tomorrow. I advised the patient to return to the emergency department if he had any further problems or questions. Departure Impression Primary Impression: Acid reflux Qualified Codes: K21.9 - Gastro-esophageal reflux disease without esophagitis Disposition: HOME, SELF-CARE Condition: Unchanged Departure-Patient Inst. Decision time for Depature: 17:53 Referrals: MAUDE LEW MD (PCP/Family) Primary Care Physician Patient Instructions: Acid Reflux (GERD), Adolescent (DC) Add. Discharge Instructions: Protonix as prescribed. Follow-up with Dr. Lew. Return if any problems or questions. Scripts Pantoprazole Sodium (Protonix) 40 Mg Granpkt. 40 MG PO DAILY for 10 Days, TAB Prov: ADRIANNA ACEVES MD 02/12/19 ADRIANNA ACEVES MD Feb 12, 2019 16:56
[2019-02-12 17:07] LABS: BASOPHILS % (AUTO) 0 % (0-10); EOSINOPHILS # (AUTO) 0.1 10^3/uL (0.0-0.3); EOSINOPHILS % (AUTO) 1 % (0-10); HEMATOCRIT 47 % (40-54); HEMOGLOBIN 16.1 G/DL (13.3-17.7); LYMPHOCYTES # (AUTO) 1.7 X 10^3 (1.0-4.0); LYMPHOCYTES % (AUTO) 27 % (12-44); MEAN CORPUSCULAR HEMOGLOBIN 32 PG (25-34); MEAN CORPUSCULAR HGB CONC 34 G/DL (32-36); MEAN CORPUSCULAR VOLUME 93 FL (80-99); MEAN PLATELET VOLUME 9.3 FL (7.4-10.4); MONOCYTES # (AUTO) 0.8 X 10^3 (0.0-1.0); MONOCYTES % (AUTO) 13 % (0-12); NEUTROPHILS # (AUTO) 3.6 X 10^3 (1.8-7.8); NEUTROPHILS % (AUTO) 58 % (42-75); PLATELET COUNT 252 10^3/uL (130-400); RED CELL DISTRIBUTION WIDTH 13.1 % (10.0-14.5); WHITE BLOOD COUNT 6.2 10^3/uL (4.3-11.0)
[2019-02-12 17:15] LABS: INR 0.9 (0.8-1.4); PROTHROMBIN TIME PATIENT 12.9 SEC (12.2-14.7)
[2019-02-12 17:23] LABS: ALANINE AMINOTRANSFERASE 27 U/L (0-55); ALBUMIN 4.8 GM/DL (3.2-4.5); ALKALINE PHOSPHATASE 50 U/L (40-136); BUN/CREATININE RATIO 13; CALCIUM 9.9 MG/DL (8.5-10.1); CARBON DIOXIDE 29 MMOL/L (21-32); CHLORIDE 99 MMOL/L (98-107); CREATININE SERUM 1.04 MG/DL (0.60-1.30); GFR ESTIMATED > 60; GLUCOSE 93 MG/DL (70-105); MAGNESIUM 2.4 MG/DL (1.8-2.4); POTASSIUM 3.8 MMOL/L (3.6-5.0); SODIUM 138 MMOL/L (135-145); TOTAL PROTEIN 7.8 GM/DL (6.4-8.2)
[2019-02-12] MEDS ORDERED: PANT40SU PO (17:54)
--- NOTE | 2019-02-12 17:55 | Diagnostic Imaging Report ---
EXAMINATION: Chest radiograph, portable AP view. DATE: February 12, 2019 at 1711 hours. INDICATION: 68-year-old male, sweaty and dizziness. COMPARISON: December 20, 2017. FINDINGS: Stable overall appearance of the cardiomediastinal silhouette. There is no identified pneumothorax. There is no large pleural effusion. There is no identified focal airspace consolidation. IMPRESSION: No identified acute cardiopulmonary abnormality. Dictated by: Dictated on workstation # [id number]
[2019-02-12] MEDS ORDERED: PANTOPRAZOLE 40 MG (PROTONIX) TAB PO ONE (18:00)
[2019-02-12 18:08] VITALS: BP 139/97
== END 2019-02-12 18:08 | disposition home or self-care (01) ==
LOC: EDUNIT# 16:39 → ER 16:40
DX: K21.9 Gastro-esophageal reflux disease without esophagitis (principal); K58.9 Irritable bowel syndrome, unspecified; I10 Essential (primary) hypertension; E03.9 Hypothyroidism, unspecified; Z85.46 Personal history of malignant neoplasm of prostate; Z88.2 Allergy status to sulfonamides; Z79.82 Long term (current) use of aspirin; Z87.891 Personal history of nicotine dependence; Z90.89 Acquired absence of other organs
CPT/HCPCS: 36415; 71045; 80053; 83735; 83874; 84484; 85025; 85610; 85730; 93005; 93041

== ENCOUNTER 2019-03-31 10:38 | Outpatient (RCR) | payer MEDICARE ==
[~2019-03-31 10:38] MED LIST changes: +PANT40SU PO
== END 2019-05-28 08:45 | disposition home or self-care (01) ==
PROVIDERS: ATTEND Physician Assistant
DX: M54.5 Low back pain (principal)

== ENCOUNTER → 2019-07-25 | Outpatient (CLI) | payer MEDICARE, OTHER ==
[~2019-07-25] MED LIST changes: +HOLD METFORMIN - RECEIVED CONTRAST 20 ML VIAL IV SCH; +IOHEXOL 350 MG/ML 100 ML (OMNIPAQUE 350) VIAL IV ONE; +NS 100 ML (IVPB) BAG IV ONE
--- NOTE | 2019-07-25 09:21 | Diagnostic Imaging Report ---
PROCEDURE: CT abdomen and pelvis with contrast. TECHNIQUE: Multiple contiguous axial images were obtained through the abdomen and pelvis after administration of intravenous contrast. Auto Exposure Controls were utilized during the CT exam to meet ALARA standards for radiation dose reduction. INDICATION: Abdominal bloating and gas with nausea as well as right-sided abdominal pain. Comparison is made with prior CT from 10/01/2006. The lung bases are clear. No discrete liver mass is detected. Gallbladder surgically absent. No biliary duct dilatation is seen. Pancreas and spleen are unremarkable. No adrenal mass is detected. Kidneys are unremarkable. No hydronephrosis is detected. No definite central retroperitoneal or mesenteric lymphadenopathy is detected. The small and large bowel loops are normal caliber. No obstruction is seen. There is no free fluid or fluid collection identified. No free air is identified. Partially filled urinary bladder is unremarkable. No pelvic lymphadenopathy is seen. The bony structures are unremarkable. IMPRESSION: Essentially unremarkable CT of the abdomen and pelvis. No acute feature is detected. Dictated by: Dictated on workstation # [id number]
== END ==
LOC: RAD 08:25
PROVIDERS: ATTEND Physician Assistant
DX: R10.84 Generalized abdominal pain (principal); R19.7 Diarrhea, unspecified; R11.0 Nausea
CPT/HCPCS: 74177

== ENCOUNTER → 2021-05-12 | Outpatient (CLI) | payer MEDICARE, OTHER ==
[~2021-05-12] MED LIST changes: -HOLD METFORMIN - RECEIVED CONTRAST 20 ML VIAL IV SCH; +HYDR-34 PO; -HYDR-3816 PO; -IOHEXOL 350 MG/ML 100 ML (OMNIPAQUE 350) VIAL IV ONE; -LISI-552 PO; +LISI20TA26 PO; -NS 100 ML (IVPB) BAG IV ONE; +SERT-413 PO; -SERT50TA9 PO; +SIME180C65 PO; -[UNRECOGNIZED DRUG - CODE] PO
== END ==
LOC: CARD 13:41
PROVIDERS: ATTEND Internal Medicine Cardiovascular Disease
DX: I25.10 Atherosclerotic heart disease of native coronary artery without angina pectoris (principal); I10 Essential (primary) hypertension
CPT/HCPCS: 93306

== ENCOUNTER → 2021-09-08 | Outpatient (CLI) | payer MEDICARE, OTHER ==
--- NOTE | 2021-09-08 14:01 | Diagnostic Imaging Report ---
INDICATION: Back pain status post injury. COMPARISON: 01/17/2017 FINDINGS: Frontal and lateral radiographic views of the thoracic spine were obtained. Evaluation of static alignment shows mild levoscoliotic deformity of the lower thoracic spine. AP static alignment is maintained. There is no significant luis enrique or retrolisthesis. There is no evidence of jumped facets. Upper thoracic vertebral body levels are partially obscured secondary to overlying osseous and soft tissue structures but the visualized vertebral body heights are maintained. There is no acute fracture. There are moderate multilevel degenerative changes consisting of intervertebral disc height loss with endplate sclerotic change and endplate osteophyte formations. Included portions of the lungs are clear. IMPRESSION: Moderate multilevel degenerative changes of the thoracic spine but no evidence of acute fracture or dislocation. Dictated by: Dictated on workstation # [id number]
== END ==
LOC: RAD
PROVIDERS: ATTEND Internal Medicine
DX: M47.814 Spondylosis without myelopathy or radiculopathy, thoracic region (principal)
CPT/HCPCS: 72072